=== PATIENT | female | born 1945 | race Caucasian/White ===

== ENCOUNTER 2016-05-19 18:31 | Emergency (ER) | payer MEDICARE, BC, OTHER ==
--- NOTE | 2016-05-19 18:50 | ER Document Report ---
ED Medical Screen (RME) - General Stated Complaint: ABNORMAL LABS Notes: 70 yo female with hx/o of DVT right leg x 3 months, sent by Dr Greenwood for abnormal lab. . Pt presently on Coumadin. + shortness of breath x 1 month. no new symptoms. labs drawn today, D Dimer elevated 2.4 TRAVEL OUTSIDE OF THE [place] IN LAST 30 DAYS: No - Related Data Allergies/Adverse Reactions: Sulfa (Sulfonamide Antibiotics) Allergy (Intermediate, Verified 01/01/16 13:21) Hives milk [Milk] Adverse Reaction (Intermediate, Verified 01/01/16 13:21) IBS Past Medical History - Past Medical History Cardiac Medical History: Reports: Hx Coronary Artery Disease, Hx DVT, Hx Hypercholesterolemia, Hx Hypertension - medicated Denies: Hx Heart Attack Pulmonary Medical History: Denies: Hx Asthma, Hx Bronchitis, Hx COPD, Hx Pneumonia Neurological Medical History: Reports: Hx Migraine. Denies: Hx Cerebrovascular Accident, Hx Seizures Malignancy Medical History: Reports: Hx Breast Cancer - BILATERAL BREAST CANCER GI Medical History: Reports: Hx Gastroesophageal Reflux Disease. Denies: Hx Hepatitis, Hx Hiatal Hernia, Hx Ulcer Musculoskeltal Medical History: Reports Hx Arthritis Psychiatric Medical History: Reports: Hx Depression Infectious Medical History: Denies: Hx Hepatitis Past Surgical History: Reports: Hx Breast Surgery, Hx Cholecystectomy - CHOLECYSTECTOMY FEW YRS AGO, Hx Hysterectomy, Hx Mastectomy - restricted on left , Hx Orthopedic Surgery - left hipx2. Denies: Hx Open Heart Surgery, Hx Pacemaker - Immunizations Immunizations up to date: No Hx Diphtheria, Pertussis, Tetanus Vaccination: Yes
--- NOTE | 2016-05-19 22:15 | ER Document Report ---
ED General - General Chief Complaint: Abnormal Lab Results Stated Complaint: ABNORMAL LABS Notes: Patient is a 70-year-old female who presents with complaint of having a positive d-dimer. Patient said that she's had some shortness of breath with exertion for 3-4 months. She's followed by ballast regulator operator, Dr. Kang. He's done Holter monitors as well as stress test. These all been negative. She has no history of cardiac stenting. She has no associated chest pain. She does have a blood clot in her right leg. She is on Coumadin for this. He did perform a d -dimer today which was positive and therefore sent her to the ER. She says her INR levels have been appropriate. She has no other complaints at this time. TRAVEL OUTSIDE OF THE [place] IN LAST 30 DAYS: No - Related Data Allergies/Adverse Reactions: Sulfa (Sulfonamide Antibiotics) Allergy (Intermediate, Verified 01/01/16 13:21) Hives milk [Milk] Adverse Reaction (Intermediate, Verified 01/01/16 13:21) IBS Past Medical History - Social History Smoking Status: Never Smoker Frequency of alcohol use: None Drug Abuse: None Family History: Reviewed & Not Pertinent Patient has suicidal ideation: No Patient has homicidal ideation: No - Past Medical History Cardiac Medical History: Reports: Hx Coronary Artery Disease, Hx DVT, Hx Hypercholesterolemia, Hx Hypertension - medicated Denies: Hx Heart Attack Pulmonary Medical History: Denies: Hx Asthma, Hx Bronchitis, Hx COPD, Hx Pneumonia Neurological Medical History: Reports: Hx Migraine. Denies: Hx Cerebrovascular Accident, Hx Seizures Renal/ Medical History: Denies: Hx Peritoneal Dialysis Malignancy Medical History: Reports: Hx Breast Cancer - BILATERAL BREAST CANCER GI Medical History: Reports: Hx Gastroesophageal Reflux Disease. Denies: Hx Hepatitis, Hx Hiatal Hernia, Hx Ulcer Musculoskeltal Medical History: Reports Hx Arthritis Psychiatric Medical History: Reports: Hx Depression Infectious Medical History: Denies: Hx Hepatitis Past Surgical History: Reports: Hx Breast Surgery, Hx Cholecystectomy - CHOLECYSTECTOMY FEW YRS AGO, Hx Hysterectomy, Hx Mastectomy - restricted on left , Hx Orthopedic Surgery - left hipx2. Denies: Hx Open Heart Surgery, Hx Pacemaker - Immunizations Immunizations up to date: No Hx Diphtheria, Pertussis, Tetanus Vaccination: Yes Hx Pneumococcal Vaccination: 11/28/14 Review of Systems - Review of Systems Notes: My Normal Review Basic REVIEW OF SYSTEMS: CONSTITUTIONAL : Denies fever, chills, or sweats. Denies recent illness. EENT: Denies eye, ear, throat, or mouth pain or symptoms. Denies nasal or sinus congestion. CARDIOVASCULAR: Denies chest pain. RESPIRATORY: Some dyspnea. GASTROINTESTINAL: Denies abdominal pain. Denies nausea, vomiting, or diarrhea. Denies constipation. Last BM: MUSCULOSKELETAL: Denies neck or back pain or joint pain or swelling. SKIN: Denies rash or skin lesions. HEMATOLOGIC : Denies easy bruising or bleeding. NEUROLOGICAL: Denies altered mental status or loss of consciousness. Denies headache. Denies weakness or paralysis or loss of use of either side. Denies problems with gait or speech. Denies sensory or motor loss. ALL OTHER SYSTEMS REVIEWED AND NEGATIVE. Physical Exam - Vital signs Vitals: Temp Pulse Resp BP Pulse Ox 98.5 F 103 H 20 146/85 H 94 05/19/16 18:51 05/19/16 18:51 05/19/16 18:51 05/19/16 18:51 05/19/16 18:51 - Notes Notes: General Appearance: Well nourished, alert, cooperative, no acute distress, no obvious discomfort. Well-appearing. Vitals: reviewed, See vital signs table. Head: no swelling or tenderness to the head Eyes: PERRL, EOMI, Conjuctiva clear Mouth: No decreasd moisture Neck: Supple, no neck tenderness, No thyromegaly Lungs: No wheezing, No rales, No rhonci, No accessory muscle use, good air exchange bilaterally. Heart: Normal rate, Regular rythm, No murmur, no rub Abdomen: Normal BS, soft, No rigidity, No abdominal tenderness, No guarding, no rebound, no abdominal masses, no organomegaly Extremities: strength 5/5 in all extremities, good pulses in all extremities, no swelling or tenderness in the extremities, no edema. Skin: warm, dry, appropriate color, no rash Neuro: speech clear, oriented x 3, normal affect, responds appropriately to questions. Course - Vital Signs Vital signs: Temp Pulse Resp BP Pulse Ox 98.5 F 103 H 20 146/85 H 94 05/19/16 18:51 05/19/16 18:51 05/19/16 18:51 05/19/16 18:51 05/19/16 18:51 - Laboratory Result Diagrams: 03/22/17 22:40 05/19/16 23:38 Laboratory results interpreted by me: 05/19/16 05/19/16 05/19/16 22:40 22:40 23:38 Hgb 11.7 L Hct 34.6 L RDW 15.3 H PT 34.7 H Carbon Dioxide 31 H - EKG Interpretation by Me Additional EKG results interpreted by me: 05/19/16 22:33 EKG is reviewed and interpreted by me. EKG shows normal sinus rhythm with rate of 79 bpm. Patient has some cognitive up ST segment elevation leads 2. No reciprocal ST segment depressions. Consistent with early repolarization abnormality and is consistent with her previous old EKG from 01/28/2016. FL interval, QRS duration, QTC levels are within normal range. - Transfer of Care Notes: 05/20/16 01:[address] scan was negative for any blood clots in her lungs. Her lung regalado are clear. She looks well. I feel she is safe to be discharged home. I do not think she needs any further cardiac workup that she has no chest pain in his had a recent negative cardiac stress test. Her exertional dyspnea is being worked up by her ballast regulator operator, Dr. Knag and her symptoms have been ongoing for 2- 3 months. Patient's INR slightly supratherapeutic. At this time I do not think it's appropriate to adjust her dosage as her levels most likely fluctuate as expected with Coumadin. Dictation of this chart was performed using voice recognition software; therefore, there may be some unintended grammatical errors. Discharge - Discharge Clinical Impression: Elevated d-dimer Dyspnea Qualifiers: Dyspnea type: unspecified Qualified Code(s): R06.00 - Dyspnea, unspecified Condition: Good Disposition: HOME, SELF-CARE Additional Instructions: Please return to the ER if you have worsening difficulty breathing, chest pain, fevers, or feel unwell. Please call Dr. Kang's office tomorrow to make a close follow-up appointment. Your CT scan today was negative for any blood clots in your chest. Referrals: BRIGITTE GUTIERREZ MD [Primary Care Provider] - Follow up as needed EDYTA KANG MD [EMERITUS] - Follow up tomorrow
[2016-05-19 22:58] LABS: ABSOLUTE BASOPHILS # (AUTO) 0.1 10^3/uL (0.0-0.2); ABSOLUTE EOSINOPHILS # (AUTO) 0.2 10^3/uL (0.0-0.6); ABSOLUTE LYMPHOCYTES (AUTO) 1.9 10^3/uL (0.5-4.7); ABSOLUTE MONOCYTES (AUTO) 0.6 10^3/uL (0.1-1.4); ABSOLUTE NEUT (AUTO) 5.2 10^3/uL (1.7-8.2); EOSINOPHILS % (AUTO) 2.2 % (0-6); HEMATOCRIT 34.6 % (36.0-47.0); HEMOGLOBIN 11.7 g/dL (12.0-15.5); HGB HCT DIFFERENCE 0.5; LYMPHOCYTES % (AUTO) 23.6 % (13-45); MEAN CORPUSCULAR HEMOGLOBIN 30.8 pg (27.0-33.4); MEAN CORPUSCULAR HGB CONC 33.7 g/dL (32.0-36.0); MEAN CORPUSCULAR VOLUME 91 fl (80-97); MONOCYTES % (AUTO) 7.2 % (3-13); RED BLOOD COUNT 3.79 10^6/uL (3.72-5.28); RED CELL DISTRIBUTION WIDTH 15.3 % (11.5-14.0); WHITE BLOOD COUNT 7.9 10^3/uL (4.0-10.5)
[2016-05-19 23:04] LABS: PROTHROMBIN TIME 34.7 SEC (11.4-15.4)
[2016-05-20 00:06] LABS: ANION GAP 9 (5-19); BLOOD UREA NITROGEN 10 mg/dL (7-20); CARBON DIOXIDE 31 mmol/L (22-30); CHLORIDE 99 mmol/L (98-107); CREATININE RESULT 0.73 mg/dL (0.52-1.25); GLUCOSE 103 mg/dL (75-110); POTASSIUM 3.9 mmol/L (3.6-5.0); SODIUM 138.6 mmol/L (137-145)
[2016-05-20] MEDS ORDERED: NORMAL SALINE 1000 ML 500 ML IV ONE (00:11)
[2016-05-20 01:50] VITALS: BP 124/69
--- NOTE | 2016-05-20 08:12 | EKG REPORT ---
SEVERITY:- NORMAL ECG - SINUS RHYTHM : Confirmed by: Yao Greenwood MD 20-May-2016 08:11:16
== END 2016-05-20 01:50 | disposition home or self-care (01) ==
LOC: ER 18:31
DX: R79.89 Other specified abnormal findings of blood chemistry (principal); R06.00 Dyspnea, unspecified; I25.10 Atherosclerotic heart disease of native coronary artery without angina pectoris; E78.00 Pure hypercholesterolemia, unspecified; I10 Essential (primary) hypertension; K21.9 Gastro-esophageal reflux disease without esophagitis; Z86.718 Personal history of other venous thrombosis and embolism; Z79.01 Long term (current) use of anticoagulants; Z88.2 Allergy status to sulfonamides; Z91.011 Allergy to milk products; Z85.3 Personal history of malignant neoplasm of breast; Z90.49 Acquired absence of other specified parts of digestive tract; Z90.710 Acquired absence of both cervix and uterus
CPT/HCPCS: 36415; 71275; 80048; 80061; 80076; 82550; 83880; 85025; 85379; 85610; 93005; 93010; 99284

== ENCOUNTER → 2016-05-19 | Outpatient (CLI) | payer MEDICARE, BC, OTHER ==
[2016-05-19 10:16] LABS: ALANINE AMINOTRANSFERASE 28 U/L (9-52); ALBUMIN 4.4 g/dL (3.5-5.0); ALKALINE PHOSPHATASE 91 U/L (38-126); ASPARTATE AMINO TRANSFERASE 27 U/L (14-36); BILIRUBIN,DIRECT 0.3 mg/dL (0.0-0.4); BILIRUBIN,TOTAL 0.4 mg/dL (0.2-1.3); CHOLESTEROL 312.77 mg/dL (0-200); CREATINE KINASE 79 U/L (30-135); Direct HDL 69 mg/dL (>40); TOTAL PROTEIN 7.8 g/dL (6.3-8.2); TRIGLYCERIDES 191 mg/dL (<150)
[2016-05-19 10:20] LABS: ANION GAP 14 (5-19); BLOOD UREA NITROGEN 9 mg/dL (7-20); CALCIUM 10.1 mg/dL (8.4-10.2); CARBON DIOXIDE 27 mmol/L (22-30); CHLORIDE 100 mmol/L (98-107); CREATININE RESULT 0.82 mg/dL (0.52-1.25); GLUCOSE 106 mg/dL (75-110); POTASSIUM 4.7 mmol/L (3.6-5.0); SODIUM 141.4 mmol/L (137-145)
[2016-05-19 10:27] LABS: DIRECT LDL 216 mg/dL (<100)
[2016-05-19 10:31] LABS: VLDL CHOLESTEROL 38.2 mg/dL (10-31)
== END ==
LOC: OD 08:41
PROVIDERS: ATTEND Internal Medicine Cardiovascular Disease
DX: R06.02 Shortness of breath (principal); E78.00 Pure hypercholesterolemia, unspecified; M62.82 Rhabdomyolysis; Z79.899 Other long term (current) drug therapy
CPT/HCPCS: 36415; 80048; 80061; 80076; 82550; 83880; 85379

== ENCOUNTER 2016-07-08 07:18 | Day surgery (SDC) | payer MEDICARE, BC, OTHER ==
--- NOTE | 2016-07-01 10:40 | HISTORY AND PHYSICAL E ---
History and Physical NAME: RUKHSANA GANDHI : 1945 AGE: 70Y ADMITTED: 07/08/2016 ROOM: ADMIT DATE: 07/08/2016 HISTORY OF PRESENT ILLNESS: Upper GI done back in 1999 showed 2 cm diverticulum in the duodenum. She did have colonoscopy in the past, Dr. Kennedy. ALLERGIES: Patient allergic to SULFA. PAST MEDICAL HISTORY: Colonoscopy 2000 showing polyps in the rectosigmoid colon, benign hyperplastic polyps. Another colonoscopy 2010 showing no adenoma. Another colonoscopy 2012 showing polyps. Colonoscopy 05/2015 shows hyperplastic polyps. PRIMARY CARE: Denys Alcantara MD PHYSICAL EXAMINATION: GENERAL: Pleasant, alert, oriented in no acute distress. VITAL SIGNS: Temperature is 98. Pulse 80. Respirations 20. Blood pressure 140/70. HEAD, EYES, EARS, NOSE AND THROAT: Normal. ABDOMEN: Soft. NEUROLOGIC EXAM: Negative. CONCLUSIONS: 1. Diverticulosis. 2. Colorectal polyps. 3. History of breast cancer. PLAN: Colonoscopy arranged for 07/08/2016. DICTATING PHYSICIAN: LACHELLE VELASCO M.D. [id number] PHY#: [id number] ID: [id number] JOB#: [id number] ACCT: [id number] cc:HOMERO MÉNDEZ M.D., ALEXANDER M.D. ISSA, MAHMOUD M.D. >
[~2016-07-08 07:18] MED LIST: EPINEPHRINE INJ 1 MG/10 ML DISP.SYRIN ONE; FENTANYL CITRATE INJ/PF 100 MCG/2 ML AMPUL ONE; FLUMAZENIL INJ 0.5 MG/5 ML VIAL IV ONE; GLUCAGON,HUMAN RECOMB 1 MG INJ ONE; GLYCOPYRROLATE INJ 0.4 MG/2 ML VIAL ONE; LIDOCAINE 2% JELLY 30 ML TUBE ONE; MIDAZOLAM 2 MG/2 ML INJ ONE; NALOXONE HCL INJ/PF 0.4 MG/1 ML SDV ONE; ONDANSETRON HCL INJ/PF 4 MG/2 ML SDV ONE
[2016-07-08] MEDS ORDERED: GLUCAGON,HUMAN RECOMB 1 MG INJ ONE (08:31)
[2016-07-08] MEDS ORDERED: PROPOFOL INJ 200 MG/20 ML VIAL IV ONE (08:32)
[2016-07-08] MEDS ORDERED: FENTANYL CITRATE INJ/PF 100 MCG/2 ML AMPUL IV PRN ×2 (08:43)
[2016-07-08] MEDS ORDERED: ONDANSETRON HCL INJ/PF 4 MG/2 ML SDV IV PRN (08:43)
[2016-07-08 10:23] LABS: ABSOLUTE EOSINOPHILS # (AUTO) 0.2 10^3/uL (0.0-0.6); ABSOLUTE LYMPHOCYTES (AUTO) 1.9 10^3/uL (0.5-4.7); ABSOLUTE MONOCYTES (AUTO) 0.4 10^3/uL (0.1-1.4); ABSOLUTE NEUT (AUTO) 4.2 10^3/uL (1.7-8.2); BASOPHILS % (AUTO) 0.5 % (0-2); EOSINOPHILS % (AUTO) 2.3 % (0-6); HEMOGLOBIN 12.8 g/dL (12.0-15.5); HGB HCT DIFFERENCE 0.4; LYMPHOCYTES % (AUTO) 28.6 % (13-45); MEAN CORPUSCULAR HEMOGLOBIN 31.7 pg (27.0-33.4); MEAN CORPUSCULAR HGB CONC 33.8 g/dL (32.0-36.0); MEAN CORPUSCULAR VOLUME 94 fl (80-97); MONOCYTES % (AUTO) 6.5 % (3-13); RED BLOOD COUNT 4.05 10^6/uL (3.72-5.28); RED CELL DISTRIBUTION WIDTH 15.8 % (11.5-14.0); SEGMENTED NEUTROPHILS % (AUTO) 62.1 % (42-78); WHITE BLOOD COUNT 6.8 10^3/uL (4.0-10.5)
[2016-07-08 10:40] VITALS: BP 97/56
--- NOTE | 2016-07-08 14:40 | DISCHARGE SUMMARY E ---
Discharge Summary NAME: RUKHSANA GANDHI : 1945 AGE: 70Y ADMITTED: 07/08/2016 DISCHARGED: 07/08/2016 PROCEDURE: Colonoscopy. FINAL DIAGNOSIS: Sigmoid and descending colon diverticulosis. HISTORY: The patient is 70 and had a previous colonoscopy with hyperplastic polyps. Today's colonoscopy was successful to the cecum, done in the OR with anesthesia standby. There was no bleeding and no malignancy. There was diverticulosis in sigmoid and descending colon. DISCHARGE PLAN: Baseline CBC, CEA, chem profile and follow-up office visit in the next few days. Consideration of follow-up colonoscopy in 1 year with better prep with anesthesia standby. DICTATING PHYSICIAN: LACHELLE VELASCO M.D. [id number] PHY#: [id number] ID: [id number] JOB#: [id number] ACCT: [id number] cc:HOMERO MÉNDEZ M.D., ALEXANDER M.D. ISSA, MAHMOUD M.D. >
--- NOTE | 2016-07-08 14:42 | OPERATIVE REPORT E ---
Operative Report NAME: RUKHSANA GANDHI : 1945 AGE: 70Y DATE OF SURGERY: 07/08/2016 ROOM: PREOPERATIVE DIAGNOSIS: Colon screening. POSTOPERATIVE DIAGNOSIS: Sigmoid descending colon diverticulosis. PROCEDURE: Colonoscopy. SURGEON: LACHELLE VELASCO M.D. ANESTHESIA: Done in the OR with Anesthesia standby. TISSUE REMOVED OR ALTERED: None. DESCRIPTION OF PROCEDURE: Rectal exam: Normal. Sigmoid descending colon: Diverticulosis. Transverse colon: Large amount of liquid stool, otherwise normal. Ascending colon: Some food material and debris of leftover food, otherwise normal. Cecum: Normal. There was a large amount of food retained in the cecum. Prep was inadequate. There was a large amount of formed stool and full liquid material. I did the best I could. I just could not see any polyps or malignancy. Scope withdrawn through cecum, ascending, transverse, descending, sigmoid, all the way to the rectum. CONCLUSION: 1. Inadequate prep. 2. Large amount of retained foot material in the right colon. 3. Full liquid stool in the transverse colon. 4. Essentially negative colonoscopy for malignancy, negative for polyps. 5. Large diverticulosis. PLAN: Consider followup colonoscopy after a year with better prep to be done in the OR. DICTATING PHYSICIAN: LACHELLE VELASCO M.D. [id number] PHY#: [id number] ID: [id number] JOB#: [id number] ACCT: [id number] cc:HOMERO MÉNDEZ M.D., ALEXANDER M.D. ISSA, MAHMOUD M.D. >
== END 2016-07-08 10:40 | disposition home or self-care (01) ==
LOC: END 07:18
PROVIDERS: ATTEND Specialist
PROC: 0DJD8ZZ Inspection of Lower Intestinal Tract, Via Natural or Artificial Opening Endoscopic (ICD-10-PCS; principal; 2016-07-08 08:00)
DX: Z12.11 Encounter for screening for malignant neoplasm of colon (principal); K57.30 Diverticulosis of large intestine without perforation or abscess without bleeding; I10 Essential (primary) hypertension; I25.10 Atherosclerotic heart disease of native coronary artery without angina pectoris; M19.90 Unspecified osteoarthritis, unspecified site; K63.5 Polyp of colon; R97.0 Elevated carcinoembryonic antigen [CEA]; Z88.2 Allergy status to sulfonamides; Z85.3 Personal history of malignant neoplasm of breast
CPT/HCPCS: 36415; 82378; 85025; G0121; J0171; J2704; 45378; 810; J1610; J2250; J2310; J2405; J3010; J3490

== ENCOUNTER → 2016-09-16 | Outpatient (CLI) | payer MEDICARE, BC, OTHER ==
[2016-09-16 13:49] LABS: ALANINE AMINOTRANSFERASE 30 U/L (9-52); ALBUMIN 4.6 g/dL (3.5-5.0); ALKALINE PHOSPHATASE 95 U/L (38-126); ANION GAP 13 (5-19); ASPARTATE AMINO TRANSFERASE 32 U/L (14-36); BILIRUBIN,DIRECT 0.4 mg/dL (0.0-0.4); BILIRUBIN,TOTAL 0.7 mg/dL (0.2-1.3); BLOOD UREA NITROGEN 12 mg/dL (7-20); CALCIUM 9.7 mg/dL (8.4-10.2); CARBON DIOXIDE 24 mmol/L (22-30); CHLORIDE 97 mmol/L (98-107); CREATINE KINASE 90 U/L (30-135); CREATININE RESULT 0.89 mg/dL (0.52-1.25); GLUCOSE 113 mg/dL (75-110); SODIUM 133.5 mmol/L (137-145)
[2016-09-17 08:58] LABS: CHOLESTEROL 280.38 mg/dL (0-200); Direct HDL 64 mg/dL (>40); TRIGLYCERIDES 130 mg/dL (<150)
[2016-09-17 09:08] LABS: DIRECT LDL 201 mg/dL (<100)
== END ==
LOC: OD 12:43
PROVIDERS: ATTEND Internal Medicine Cardiovascular Disease
DX: E78.00 Pure hypercholesterolemia, unspecified (principal); R06.02 Shortness of breath; M62.82 Rhabdomyolysis; Z79.899 Other long term (current) drug therapy
CPT/HCPCS: 36415; 80048; 80061; 80076; 82550; 83880; 85379

== ENCOUNTER → 2016-12-31 | Outpatient (CLI) | payer MEDICARE, BC, OTHER ==
[2017-01-07 16:35] LABS: ANION GAP 15 (5-19); BLOOD UREA NITROGEN 14 mg/dL (7-20); CALCIUM 9.3 mg/dL (8.4-10.2); CARBON DIOXIDE 24 mmol/L (22-30); CHLORIDE 103 mmol/L (98-107); CREATININE RESULT 0.93 mg/dL (0.52-1.25); GLUCOSE 87 mg/dL (75-110); POTASSIUM 4.3 mmol/L (3.6-5.0); SODIUM 141.5 mmol/L (137-145)
== END ==
LOC: OD 10:06
PROVIDERS: ATTEND Internal Medicine Cardiovascular Disease
DX: I48.0 Paroxysmal atrial fibrillation (principal); I10 Essential (primary) hypertension; Z79.899 Other long term (current) drug therapy
CPT/HCPCS: 36415; 80048

== ENCOUNTER → 2017-05-17 | Outpatient (CLI) | payer MEDICARE, BC, OTHER ==
--- NOTE | 2017-05-17 16:11 | WOMENS IMAGING REPORT ---
EXAM DESCRIPTION: BILAT SCREENING MAMMO W/CAD COMPLETED DATE/TIME: 05/17/2017 1:21 pm REASON FOR STUDY: ROUTINE SCREENING;Z12.31 Z12.31 ENCNTR SCREEN MAMMOGRAM FOR MALIGNANT NEOPLASM OF LUCILA COMPARISON: Previous films are preoperative, 5 years ago at a different institution TECHNIQUE: Standard craniocaudal and mediolateral oblique views of each breast recorded using digita l acquisition. Additional "push-back" craniocaudal and mediolateral oblique images acquired. LIMITATIONS: None. FINDINGS: IMPLANTS: Bilateral subpectoral implants. Findings present which are benign by mammographic criteria. No suspicious masses, calcifications or architectural distortion. Patient is post bilateral skin sparing mastectomies. No [place] breast tis daniel is identified on today's mammograms. Read with the assistance of CAD. .[facility] - R2 Cenova Version 1.3 .[facility] - R2 Cenova Version 1.3 .[facility] - R2 Cenova Version 2.4 .[facility] [place] - R2 Cenova Version 2.4 .[facility] - R2 Intermediate Project Manager Version 9.2 Benign mammographic findings may include one or more of the following: Smooth masses, popcorn/rim/co arse calcifications, asymmetries, post-procedure changes, and lesions with long-standing stability. IMPRESSION: BENIGN MAMMOGRAPHIC FINDINGS. BIRADS 2 BREAST DENSITY: a. The breasts are almost entirely fatty. BIRAD: 2 BENIGN FINDING(S) RECOMMENDATION: Screening as clinically indicated COMMENT: The patient has been notified of the results by letter per [place] requirements. Additional no tification policies are in place for contacting patient with suspicious or incomplete findings. Quality ID #[id number]: The [employer] recommends an annual screening mammogram for women aged 40 years or over. This facility utilizes a reminder system to ensure that all patients receive reminder letters, and/or direct phone calls for appointments. This includes reminders for routine scr eening mammograms, diagnostic mammograms, or other Breast Imaging Interventions when appropriate. Th is patient will be placed in the appropriate reminder system. The [employer] (ACR) has developed recommendations for screening MRI of the breast s in certain patient populations, to be used in conjunction with mammography. Breast MRI surveillanc e may be appropriate for women with more than 20% lifetime risk of developing breast cancer as deter mined by genetic testing, significant family history of the disease, or history of mantle radiation f or Hodgkins Disease. ACR Practice Guidelines 2008. TECHNICAL DOCUMENTATION: FINDING NUMBER: (1) ASSESSMENT: (1) JOB ID: [id number] [employer]- All Rights Reserved Reading location - IP/workstation name: [email or web address]
== END ==
LOC: WI 12:58
PROVIDERS: ATTEND Physician Assistant Medical
DX: Z12.31 Encounter for screening mammogram for malignant neoplasm of breast (principal); Z98.82 Breast implant status
CPT/HCPCS: 77067

== ENCOUNTER 2017-11-13 13:48 | Inpatient (IN) | payer MEDICARE, BC, OTHER ==
[2017-11-13] MEDS ORDERED: NORMAL SALINE 1000 ML 1,000 ML IV ONE ×2 (14:21→14:22)
--- NOTE | 2017-11-13 14:23 | ER Document Report ---
ED Medical Screen (RME) - General Chief Complaint: Probable Seizure Stated Complaint: POSSIBLE SEIZURE Time Seen by Provider: 11/13/17 14:08 Mode of Arrival: Wheelchair Information source: Patient, Relative Notes: Patient's says he witnessed patient collapsed twice today at home. Prior to collapsing she was standing and then she started shaking before she collapsed on the floor. Patient has history of seizures according to the but she has not taken any seizure medicine currently. Patient is a poor historian and could not give me any history by herself. I have greeted and performed a rapid initial assessment of this patient. A comprehensive ED assessment and evaluation of the patient, analysis of test results and completion of the medical decision making process will be conducted by additional ED providers. TRAVEL OUTSIDE OF THE [place] IN LAST 30 DAYS: No - Related Data Allergies/Adverse Reactions: Sulfa (Sulfonamide Antibiotics) Allergy (Intermediate, Verified 07/08/16 07:21) Hives milk [Milk] Adverse Reaction (Intermediate, Verified 07/08/16 07:21) IBS Past Medical History - Past Medical History Cardiac Medical History: Reports: Hx Coronary Artery Disease, Hx DVT, Hx Hypercholesterolemia, Hx Hypertension - medicated Denies: Hx Heart Attack Pulmonary Medical History: Denies: Hx Asthma, Hx Bronchitis, Hx COPD, Hx Pneumonia Neurological Medical History: Reports: Hx Migraine. Denies: Hx Cerebrovascular Accident, Hx Seizures Renal/ Medical History: Denies: Hx Peritoneal Dialysis Malignancy Medical History: Reports: Hx Breast Cancer - BILATERAL BREAST CANCER GI Medical History: Reports: Hx Gastroesophageal Reflux Disease. Denies: Hx Hepatitis, Hx Hiatal Hernia, Hx Ulcer Musculoskeltal Medical History: Reports Hx Arthritis Psychiatric Medical History: Reports: Hx Depression Infectious Medical History: Denies: Hx Hepatitis Past Surgical History: Reports: Hx Breast Surgery, Hx Cholecystectomy - CHOLECYSTECTOMY FEW YRS AGO, Hx Hysterectomy, Hx Mastectomy - restricted on left , Hx Orthopedic Surgery - left hipx2. Denies: Hx Open Heart Surgery, Hx Pacemaker - Immunizations Immunizations up to date: No Hx Diphtheria, Pertussis, Tetanus Vaccination: Yes Physical Exam - Vital signs Vitals: Temp Pulse Resp BP Pulse Ox 97.5 F 71 16 71/47 L 97 11/13/17 13:57 11/13/17 13:57 11/13/17 13:57 11/13/17 13:57 09/16/18 13:57 Course - Vital Signs Vital signs: Temp Pulse Resp BP Pulse Ox 97.5 F 71 16 71/47 L 97 11/13/17 13:57 11/13/17 13:57 11/13/17 13:57 11/13/17 13:57 11/13/17 13:57 Doctor's Discharge - Discharge Referrals: JUANITO PAT PA-C [Primary Care Provider] - Follow up as needed
[2017-11-13 15:15] LABS: ABSOLUTE EOSINOPHILS # (AUTO) 0.2 10^3/uL (0.0-0.6); ABSOLUTE LYMPHOCYTES (AUTO) 0.7 10^3/uL (0.5-4.7); ABSOLUTE MONOCYTES (AUTO) 0.3 10^3/uL (0.1-1.4); ABSOLUTE NEUT (AUTO) 11.2 10^3/uL (1.7-8.2); BASOPHILS % (AUTO) 0.2 % (0-2); EOSINOPHILS % (AUTO) 1.2 % (0-6); HEMATOCRIT 37.8 % (36.0-47.0); HEMOGLOBIN 12.5 g/dL (12.0-15.5); MEAN CORPUSCULAR HEMOGLOBIN 31.4 pg (27.0-33.4); MEAN CORPUSCULAR HGB CONC 33.2 g/dL (32.0-36.0); MEAN CORPUSCULAR VOLUME 95 fl (80-97); MONOCYTES % (AUTO) 2.2 % (3-13); PLATELET COUNT 285 10^3/uL (150-450); RED BLOOD COUNT 3.99 10^6/uL (3.72-5.28); RED CELL DISTRIBUTION WIDTH 14.5 % (11.5-14.0); SEGMENTED NEUTROPHILS % (AUTO) 90.4 % (42-78); TOTAL CELLS COUNTED % (AUTO) 100 %; WHITE BLOOD COUNT 12.4 10^3/uL (4.0-10.5)
--- NOTE | 2017-11-13 15:22 | RADIOLOGY REPORT (SQ) ---
EXAM DESCRIPTION: CT HEAD WITHOUT COMPLETED DATE/TIME: 11/13/2017 3:11 pm REASON FOR STUDY: AMS COMPARISON: 01/03/2016, 08/10/2013, 12/13/2008 CT brain TECHNIQUE: Axial images acquired through the brain without intravenous contrast. Images reviewed wi th bone, brain and subdural windows. Additional sagittal and coronal reconstructions were generated. Images stored on PACS. All CT scanners at this facility use dose modulation, iterative reconstruction, and/or weight based d osing when appropriate to reduce radiation dose to as low as reasonably achievable (ALARA). [facility]: Dose Right [facility]: CareDose [facility]: Dose Right [facility]: Teradose 4D [facility]: Hello Chair RADIATION DOSE: CT Rad equipment meets quality standard of care and radiation dose reduction techniq ues were employed. CTDIvol: 53.2 mGy. DLP: 937 mGy-cm. mGy. LIMITATIONS: None. FINDINGS: VENTRICLES: Normal size and contour. CEREBRUM: No CT evidence of acute large territory ischemic change, acute intracranial hemorrhage, mas s effect, or midline shift. Low attenuation in the bilateral medial basal ganglia images 16 and 17 f rom old punctate lacunar infarcts. CEREBELLUM: No masses. No hemorrhage. No alteration of density. No evidence for acute infarction. EXTRAAXIAL SPACES: No fluid collections. No masses. ORBITS AND GLOBE: No intra- or extraconal masses. Normal contour of globe without masses. CALVARIUM: No fracture. PARANASAL SINUSES: No fluid or mucosal thickening. SOFT TISSUES: No mass or hematoma. OTHER: No other significant finding. IMPRESSION: No acute findings EVIDENCE OF ACUTE STROKE: NO. COMMENT: Quality ID # [id number]: Final reports with documentation of one or more dose reduction techniques (e.g., Automated exposure control, adjustment of the mA and/or kV according to patient size, use of iterative reconstruction technique) TECHNICAL DOCUMENTATION: JOB ID: [id number] [employer]- All Rights Reserved Reading location - IP/workstation name: [email or web address]
--- NOTE | 2017-11-13 15:28 | RADIOLOGY REPORT (SQ) ---
EXAM DESCRIPTION: CHEST 2 VIEWS COMPLETED DATE/TIME: 11/13/2017 3:17 pm REASON FOR STUDY: AMS COMPARISON: 01/03/2016 EXAM PARAMETERS: NUMBER OF VIEWS: two views TECHNIQUE: Digital Frontal and Lateral radiographic views of the chest acquired. RADIATION DOSE: NA LIMITATIONS: none FINDINGS: LUNGS AND PLEURA: No opacities, masses or pneumothorax. No pleural effusion. MEDIASTINUM AND HILAR STRUCTURES: No masses or contour abnormalities. HEART AND VASCULAR STRUCTURES: Heart normal size. No evidence for failure. BONES: No acute findings. HARDWARE: None in the chest. OTHER: No other significant finding. IMPRESSION: NO ACUTE RADIOGRAPHIC FINDING IN THE CHEST. TECHNICAL DOCUMENTATION: JOB ID: [id number] [employer]- All Rights Reserved Reading location - IP/workstation name: [email or web address]
[2017-11-13 15:49] LABS: ALANINE AMINOTRANSFERASE 12 U/L (9-52); ALBUMIN 4.1 g/dL (3.5-5.0); ALKALINE PHOSPHATASE 69 U/L (38-126); ANION GAP 12 (5-19); ASPARTATE AMINO TRANSFERASE 25 U/L (14-36); BILIRUBIN,DIRECT 0.5 mg/dL (0.0-0.4); BILIRUBIN,TOTAL 0.6 mg/dL (0.2-1.3); BLOOD UREA NITROGEN 19 mg/dL (7-20); CALCIUM 9.8 mg/dL (8.4-10.2); CARBON DIOXIDE 21 mmol/L (22-30); CHLORIDE 106 mmol/L (98-107); CREATINE KINASE 65 U/L (30-135); GLUCOSE 111 mg/dL (75-110); POTASSIUM 3.7 mmol/L (3.6-5.0); SODIUM 138.5 mmol/L (137-145); TOTAL PROTEIN 7.7 g/dL (6.3-8.2)
[2017-11-13 15:50] LABS: ALCOHOL < 10 mg/dL (NONE DETECTED)
[2017-11-13 15:55] LABS: CREATINE KINASE MB 0.82 ng/mL (<4.55); NT PRO BNP 121 pg/mL (5-900)
[2017-11-13 15:56] LABS: TROPONIN I < 0.012 ng/mL
[2017-11-13 17:21] LABS: APPEARANCE,URINE CLOUDY; BILIRUBIN,URINE NEGATIVE (NEGATIVE); COLOR,URINE STRAW; GLUCOSE, URINE NEGATIVE (NEGATIVE); KETONES,URINE NEGATIVE (NEGATIVE); LEUKOCYTE ESTERASE,URINE LARGE (NEGATIVE); NITRITE,URINE NEGATIVE (NEGATIVE); PROTEIN,URINE 30 mg/dL (NEGATIVE); URINE SPECIFIC GRAVITY 1.007; UROBILINOGEN,URINE NEGATIVE mg/dL (<2.0)
[2017-11-13 17:34] LABS: URINE AMPHETAMINES SCREEN NEGATIVE; URINE BARBITURATES SCREEN NEGATIVE; URINE BENZODIAZEPINES SCREEN NEGATIVE; URINE COCAINE SCREEN NEGATIVE; URINE MARIJUANA (THC) SCREEN NEGATIVE; URINE METHADONE SCREEN NEGATIVE; URINE PHENCYCLIDINE SCREEN NEGATIVE
[2017-11-13] MEDS ORDERED: CEFTRIAXONE 1 GM/D5W RTU 1 GM/50 ML RTUPB IV ONE (18:03)
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
--- NOTE | 2017-11-13 18:43 | RADIOLOGY REPORT (SQ) ---
EXAM DESCRIPTION: CT LTD RENAL STONE PROTOCOL ON COMPLETED DATE/TIME: 11/13/2017 6:24 pm REASON FOR STUDY: eval for stone, Abd pain, flank pain . Bilateral lower quadrants pain. COMPARISON: CT abdomen and pelvis 04/12/2014, 08/18/2013. Lumbar spine x-ray 01/02/2016. TECHNIQUE: CT scan of the abdomen and pelvis performed without intravenous or oral contrast. Images reviewed with lung, soft tissue, and bone windows. Reconstructed coronal and sagittal MPR images revi ewed. All images stored on PACS. All CT scanners at this facility use dose modulation, iterative reconstruction, and/or weight based d osing when appropriate to reduce radiation dose to as low as reasonably achievable (ALARA). [facility]: Dose Right [facility]: CareDose [facility]: Dose Right [facility]: Teradose 4D [facility]: [employer] RADIATION DOSE: mGy. LIMITATIONS: None. FINDINGS: Stone CT LOWER CHEST: No consolidation or pleural effusion. Partially visualized bilater al breast implants. NON-CONTRASTED LIVER, SPLEEN, ADRENALS: Evaluation limited by lack of IV contrast. No identified sign ificant masses. PANCREAS: No peripancreatic inflammatory changes. GALLBLADDER: Surgically absent. RIGHT KIDNEY AND URETER: Assessment for masses limited by lack of IV contrast. No significant calci fications. No hydronephrosis or hydroureter. LEFT KIDNEY AND URETER: Assessment for masses limited by lack of IV contrast. No significant calcif ications. No hydronephrosis or hydroureter. AORTA AND RETROPERITONEUM: No abdominal aortic aneurysm. No retroperitoneal masses or hemorrhage. BOWEL AND PERITONEAL CAVITY: No dilated bowel loops or inflammatory changes. No free fluid. Air-flui d levels are seen at the colon and rectum. There is colonic diverticulosis. There is mild soft tiss ue stranding adjacent to the distal descending colon. APPENDIX: Surgically absent. PELVIS, BLADDER, AND ABDOMINAL WALL:There is streak artifact from the left hip prosthesis. The uteru s is surgically absent. No free fluid. Bladder distended. Battery pack from the TENS stimulator is s een at the soft tissues of the right gluteal region. BONES: Multilevel degenerative changes are noted in the spine. There is interval development of comp ression deformity at the superior endplate of L2 vertebral body with anterior wedging and approximate 50% loss of the vertebral body height. No posterior retropulsion. TENS stimulator wires are extend ing along the dorsal spinal canal. The patient is status post total left hip arthroplasty. IMPRESSION: 1. No hydronephrosis or urinary tract calculi. 2. Colonic diverticulosis. Mild soft tissue stranding adjacent to the distal descending colon, may b e secondary to mild/early acute diverticulitis. 3. Air-fluid levels at the colon and rectum, suggestive of diarrhea. 4. Interval development of compression deformity with anterior wedging of L2 vertebral body, of indet erminate age. Please correlate with clinical history and point tenderness to evaluate for acute frac ture. COMMENT: Quality ID # [id number]: Final reports with documentation of one or more dose reduction techniques (e.g., Automated exposure control, adjustment of the mA and/or kV according to patient size, use of iterative reconstruction technique) TECHNICAL DOCUMENTATION: JOB ID: [id number] 2010 [employer]- All Rights Reserved Reading location - IP/workstation name: [email or web address]
[2017-11-13] MEDS ORDERED: RINGERS SOLUTION,LACTATED 1,000 ML IV PRN (18:52)
[2017-11-13] MEDS ORDERED: CEFTRIAXONE SODIUM 500 MG in DEXTROSE 5%-WATER 50 ML IV ONE (19:00)
[2017-11-13] MEDS ORDERED: CEFTRIAXONE SODIUM 1,000 MG in DEXTROSE 5%-WATER 50 ML IV ONE (19:00)
--- NOTE | 2017-11-13 19:21 | PDOC H&P ---
History of Present Illness Admission Date/PCP: BRIGITTE GUTIERREZ MD Patient complains of: Dysuria and syncopal episode History of Present Illness: RUKHSANA GANDHI is a 72 year old femaleWho presents to the emergency room after standing up at home losing consciousness and having convulsive episode. Patient states she began to have dysuria yesterday throughout the day. Today the pain was increased in the pelvic area was pain on urination she felt hot did not take her temperature however. She had shaking chills. She got up to walk across the room became lightheaded her legs buckled and her helped her to the floor and then she had a brief convulsive episode.Patient is on antihypertensivesMetoprolol and telmisartan. Upon arrival in the emergency room patient was noted to have a blood pressure of 71/50 she was given 2 L of saline and her blood pressure responded. Her creatinine was elevated in the mid twos her baseline creatinine is 0.9.A CT of the head was performed which showed no acute pathology. CT of the abdomen renal stone protocol was performed which was reported by the emergency room physician as no obstructing stone no intra-abdominal pathology.Request for admission for dehydration and urinary tract infection and sepsis was made. Past Medical History Cardiac Medical History: Reports: Coronary Artery Disease, DVT, Hyperlipidema, Hypertension - medicated Denies: Myocardial Infarction Pulmonary Medical History: Denies: Asthma, Bronchitis, Chronic Obstructive Pulmonary Disease (COPD), Pneumonia Neurological Medical History: Reports: Migraine, Other - Neuropathy Denies: Seizures Malignancy Medical History: Reports: Breast Cancer - BILATERAL BREAST CANCER GI Medical History: Reports: Gastroesophageal Reflux Disease Denies: Hepatitis, Hiatal Hernia Musculoskeltal Medical History: Reports: Arthritis Psychiatric Medical History: Reports: Dementia, Depression Hematology: Denies: Anemia, Sickle Cell Disease Past Surgical History Past Surgical History: Reports: Cholecystectomy - CHOLECYSTECTOMY FEW YRS AGO, Hysterectomy, Mastectomy - restricted on left, Orthopedic Surgery - left hipx2, Bunionectomy, Other - Spinal stimulator implantation Denies: Amputation, Pacemaker Social History Smoking Status: Never Smoker Frequency of Alcohol Use: None Hx Recreational Drug Use: No Drugs: None Hx Prescription Drug Abuse: Yes Family History Family History: COPD, Other - Father with Parkinson's disease Parental Family History Reviewed: Yes Children Family History Reviewed: Yes Sibling(s) Family History Reviewed.: Yes Medication/Allergy Home Medications: Ascorbic Acid [Vitamin C 500 mg Tablet] 500 mg PO DAILY 01/04/16 Aspirin [Aspirin 81 mg Chewable Tablet] 81 mg PO DAILY 01/04/16 Cholecalciferol (Vitamin D3) [Vitamin D3 5000 unit/mL Drops] 1 ml PO ACBRKFST Diclofenac Epolamine [Flector] 1 patch TP Q12 PRN 01/04/16 Diclofenac Sodium [Voltaren] 1 applic TP BID PRN 01/04/16 Duloxetine HCl [Cymbalta] 120 mg PO DAILY 01/04/16 Esomeprazole Mag Trihydrate [Nexium] 40 mg PO DAILY 01/04/16 Fexofenadine HCl [Holley] 180 mg PO DAILY 01/04/16 Gabapentin 300 mg PO ACBRKFST 01/04/16 Gabapentin 300 mg PO ACLUNCH 01/04/16 Gabapentin 900 mg PO QHS 01/04/16 Lactobacillus Acidophilus [Probiotic] 1 cap PO DAILY 01/04/16 Melatonin 10 mg PO QHS 01/04/16 Multivit-Minerals/Folic Acid [One Daily Womens 50 Plus Tab] 1 tab PO DAILY 01/03 [place]-3 Fatty Acids/Fish Oil [Fish Oil 1,200 mg Softgel] 2 each PO WSUPPER 01/03 Ondansetron [Zofran Odt] 8 mg PO Q8H PRN 01/04/16 Suvorexant [Belsomra] 5 mg PO QHS PRN 01/04/16 Telmisartan 80 mg PO DAILY 01/04/16 Trazodone HCl 1 tab PO QHS 01/04/16 Vitamin E (Dl, Acetate) [Vitamin E 400 Unit Capsule] 2 cap PO DAILY 01/04/16 Metoprolol Tartrate [Lopressor 100 mg Tablet] 100 mg PO Q12 #60 tablet 01/07/16 Omalizumab [Xolair Inj 150 Mg Vial] 150 mg SUBCUT .[id number] 07/07/16 Allergies/Adverse Reactions: Sulfa (Sulfonamide Antibiotics) Allergy (Intermediate, Verified 07/08/16 07:21) Hives milk [Milk] Adverse Reaction (Intermediate, Verified 07/08/16 07:21) IBS Review of Systems All systems: reviewed and no additional remarkable complaints except as stated Physical Exam Vital Signs: Temp Pulse Resp BP Pulse Ox 97.5 F 71 23 H 94/54 L 94 11/13/17 13:57 11/13/17 13:57 11/13/17 15:30 11/13/17 15:30 11/13/17 15:30 Intake & Output 11/12/17 11/13/17 11/14/17 06:59 06:59 06:59 Intake Total 1000 Balance 1000 General appearance: PRESENT: no acute distress, well-developed, well-nourished Eye exam: PRESENT: conjunctiva pink, EOMI, PERRLA. ABSENT: scleral icterus Mouth exam: PRESENT: moist, neck supple Neck exam: ABSENT: carotid bruit, JVD, lymphadenopathy, thyromegaly Respiratory exam: PRESENT: clear to auscultation manoj. ABSENT: rales, rhonchi, wheezes Cardiovascular exam: PRESENT: RRR, other - Breast implant on the left. ABSENT: diastolic murmur, rubs, systolic murmur Pulses: PRESENT: normal dorsalis pedis pul Vascular exam: PRESENT: normal capillary refill GI/Abdominal exam: PRESENT: normal bowel sounds, soft, tenderness - Suprapubic tenderness no guarding no rebound. ABSENT: distended, guarding, mass, organolmegaly, rebound Rectal exam: PRESENT: deferred Extremities exam: PRESENT: full ROM. ABSENT: calf tenderness, clubbing, pedal edema Neurological exam: PRESENT: alert, awake, oriented to person, oriented to place , oriented to time, oriented to situation, CN II-XII grossly intact. ABSENT: motor sensory deficit Psychiatric exam: PRESENT: normal mood Skin exam: PRESENT: dry, intact, warm. ABSENT: cyanosis, rash Results Laboratory Results: 11/13/17 15:10 11/13/17 15:10 11/13/17 11/13/17 11/13/17 15:10 15:10 16:55 WBC 12.4 H RBC 3.99 Hgb 12.5 Hct 37.8 MCV 95 MCH 31.4 MCHC 33.2 RDW 14.5 H Plt Count 285 Seg Neutrophils % 90.4 H Lymphocytes % 6.0 L Monocytes % 2.2 L Eosinophils % 1.2 Basophils % 0.2 Absolute Neutrophils 11.2 H Absolute Lymphocytes 0.7 Absolute Monocytes 0.3 Absolute Eosinophils 0.2 Absolute Basophils 0.0 Sodium 138.5 Potassium 3.7 Chloride 106 Carbon Dioxide 21 L Anion Gap 12 BUN 19 Creatinine 2.10 H Est GFR ( Amer) 28 L Est GFR (Non-Af Amer) 23 L Glucose 111 H Calcium 9.8 Magnesium 1.9 Total Bilirubin 0.6 AST 25 ALT 12 Alkaline Phosphatase 69 Total Protein 7.7 Albumin 4.1 Urine Color STRAW Urine Appearance CLOUDY Urine pH 6.0 Ur Specific [place] 1.007 Urine Protein 30 H Urine Glucose (UA) NEGATIVE Urine Ketones NEGATIVE Urine Blood LARGE H Urine Nitrite NEGATIVE Ur Leukocyte Esterase LARGE H Urine WBC (Auto) 160 Urine RBC (Auto) 9 11/13/17 11/13/17 15:10 15:10 Creatine Kinase 65 CK-MB (CK-2) 0.82 Troponin I < 0.012 NT-Pro-B Natriuret Pep 121 Impressions: Chest X-Ray 11/13/17 14:48 IMPRESSION: NO ACUTE RADIOGRAPHIC FINDING IN THE CHEST. Head CT 11/13/17 14:48 IMPRESSION: No acute findings EVIDENCE OF ACUTE STROKE: NO. Limited or Localized CT 11/13/17 18:11 IMPRESSION: 1. No hydronephrosis or urinary tract calculi. 2. Colonic diverticulosis. Mild soft tissue stranding adjacent to the distal descending colon, may be secondary to mild/early acute diverticulitis. 3. Air-fluid levels at the colon and rectum, suggestive of diarrhea. 4. Interval development of compression deformity with anterior wedging of L2 vertebral body, of indeterminate age. Please correlate with clinical history and point tenderness to evaluate for acute fracture. Assessment & Plan - Diagnosis (1) UTI (urinary tract infection) Is this a current diagnosis for this admission?: Yes Plan: Urine cultures obtained and ER initiated on Rocephin continue 1 g dailyCBC in a.m. (2) Sepsis Is this a current diagnosis for this admission?: Yes Plan: Patient presents hypotensive with orthostatic syncope and convulsions. Elevated white count fevers reported at home and Reiger's with pyorrhea. Patient is initiated on Rocephin in the emergency room a cultures obtained and are pending. (3) Dementia Is this a current diagnosis for this admission?: Yes Plan: Continue Namenda and Aricept. (4) Peripheral neuropathy Is this a current diagnosis for this admission?: Yes Plan: Continue gabapentin indicates she is on 300 mg daily not the 3 times daily dosing in the med rec. Have asked nursing to reconfirm medications. (5) Orthostatic syncope Is this a current diagnosis for this admission?: Yes Plan: Status post 2 L with Resolution of the hypotension. We will continue lactated Ringer's at 150 an hour. BMP in a.m.Magnesium in a.m. (6) Acute renal injury Is this a current diagnosis for this admission?: Yes Plan: Creatinine greater than 2 continue hydration daily BMPs. Hold blood pressure medicines presently. (7) Hypertension Qualifiers: Hypertension type: essential hypertension Qualified Code(s): I10 - Essential (primary) hypertension Is this a current diagnosis for this admission?: Yes Plan: Hold antihypertensives particularly telmisartanAs patient has acute renal injury likely from volume depletion from urinary tract infection (8) Hyperlipidemia Qualifiers: Hyperlipidemia type: unspecified Qualified Code(s): E78.5 - Hyperlipidemia , unspecified Is this a current diagnosis for this admission?: Yes Plan: Resume statin therapy when med rec confirmed (9) CAD (coronary artery disease) Qualifiers: Coronary Disease-Associated Artery/Lesion type: [place] artery [place] vs. transplanted heart: [place] heart Associated angina: without angina Qualified Code(s): I25.10 - Atherosclerotic heart disease of [place] coronary artery without angina pectoris Is this a current diagnosis for this admission?: Yes Plan: Normal EKG no anginal complaints continue aspirin for the present hold other medicines will resume statin therapy when med rec confirmed (10) Depression Qualifiers: Depression Type: unspecified Qualified Code(s): F32.9 - Major depressive disorder, single episode, unspecified Is this a current diagnosis for this admission?: Yes Plan: Continue outpatient medicines 1 med rec confirmed - Time Time Spent: 50 to 70 Minutes Medications reviewed and adjusted accordingly: Yes Anticipated discharge: Home Within: within 48 hours
[2017-11-13] MEDS: HEPARIN SOD (PORCINE) 5,000 UNIT/ML 1 ML SYRINGE SUBCUT SCH (22:26)
[2017-11-13] MEDS: GABAPENTIN 300 MG CAPSULE PO SCH (22:26)
[2017-11-14] MEDS: HEPARIN SOD (PORCINE) 5,000 UNIT/ML 1 ML SYRINGE SUBCUT SCH ×3 (05:11→21:32)
--- NOTE | 2017-11-14 05:18 | EKG REPORT ---
SEVERITY:- NORMAL ECG - SINUS RHYTHM : Confirmed by: Js Mckinnon 14-Nov-2017 05:18:19
[2017-11-14] MEDS ORDERED: LANSOPRAZOLE 30 MG TAB.RAP.DR PO SCH (06:00)
[2017-11-14 09:08] LABS: ABSOLUTE EOSINOPHILS # (AUTO) 0.2 10^3/uL (0.0-0.6); ABSOLUTE LYMPHOCYTES (AUTO) 1.2 10^3/uL (0.5-4.7); ABSOLUTE MONOCYTES (AUTO) 0.6 10^3/uL (0.1-1.4); BASOPHILS % (AUTO) 0.4 % (0-2); EOSINOPHILS % (AUTO) 2.1 % (0-6); HEMATOCRIT 34.7 % (36.0-47.0); HEMOGLOBIN 11.8 g/dL (12.0-15.5); MEAN CORPUSCULAR HEMOGLOBIN 31.5 pg (27.0-33.4); MEAN CORPUSCULAR VOLUME 93 fl (80-97); MONOCYTES % (AUTO) 5.6 % (3-13); PLATELET COUNT 220 10^3/uL (150-450); RED BLOOD COUNT 3.74 10^6/uL (3.72-5.28); RED CELL DISTRIBUTION WIDTH 14.3 % (11.5-14.0); SEGMENTED NEUTROPHILS % (AUTO) 79.9 % (42-78); TOTAL CELLS COUNTED % (AUTO) 100 %; WHITE BLOOD COUNT 10.1 10^3/uL (4.0-10.5)
[2017-11-14] MEDS: DULOXETINE HCL 30 MG CAPSULE.DR PO SCH (09:11)
[2017-11-14] MEDS: LACTOBACILLUS ACIDOPHILUS 250 MG TAB PO SCH (09:11)
[2017-11-14 09:18] LABS: ALANINE AMINOTRANSFERASE 16 U/L (9-52); ALBUMIN 3.4 g/dL (3.5-5.0); ALKALINE PHOSPHATASE 65 U/L (38-126); ANION GAP 8 (5-19); ASPARTATE AMINO TRANSFERASE 24 U/L (14-36); BILIRUBIN,DIRECT 0.5 mg/dL (0.0-0.4); BILIRUBIN,TOTAL 0.7 mg/dL (0.2-1.3); BLOOD UREA NITROGEN 13 mg/dL (7-20); CALCIUM 8.5 mg/dL (8.4-10.2); CARBON DIOXIDE 22 mmol/L (22-30); CHLORIDE 106 mmol/L (98-107); GLUCOSE 105 mg/dL (75-110); POTASSIUM 3.1 mmol/L (3.6-5.0); SODIUM 136.3 mmol/L (137-145); TOTAL PROTEIN 6.5 g/dL (6.3-8.2)
[2017-11-14] MEDS ORDERED: CEFTRIAXONE 1 GM/D5W RTU 50 ML IV SCH (10:00)
[2017-11-14] MEDS ORDERED: LACTOBACILLUS ACIDOPHILUS PO SCH (10:00)
[2017-11-14] MEDS ORDERED: (PENDING PHARMACY ID) (Duloxetine Hcl [Cymbalta] 120 MG) PO SCH (10:00)
[2017-11-14] MEDS ORDERED: ASPIRIN 81 MG TABLET, CHEWABLE PO SCH (10:00)
--- NOTE | 2017-11-14 11:09 | PDOC PROGRESS REPORT ---
Subjective Progress Note for:: 11/14/17 Subjective:: Patient awake and alert hemodynamically stable. Creatinine now 0.9 back to baseline. Potassium low at 3.1. Patient feels significantly improved. Urine positive for gram-negative rods ID and sensitivity pending. Reason For Visit: URINARY TRACT INFECTION/SEPSIS Physical Exam Vital Signs: Temp Pulse Resp BP Pulse Ox 98.9 F 90 16 154/71 H 97 11/14/17 07:32 11/14/17 07:32 11/14/17 07:32 11/14/17 07:32 11/14/17 07:32 Intake & Output 11/13/17 11/14/17 11/15/17 06:59 06:59 06:59 Intake Total 1200 Balance 1200 Weight 71.3 kg General appearance: PRESENT: no acute distress, well-developed, well-nourished Neck exam: ABSENT: carotid bruit, JVD, lymphadenopathy, thyromegaly Respiratory exam: PRESENT: clear to auscultation manoj. ABSENT: rales, rhonchi, wheezes Cardiovascular exam: PRESENT: RRR. ABSENT: diastolic murmur, rubs, systolic murmur Extremities exam: PRESENT: full ROM. ABSENT: calf tenderness, clubbing, pedal edema Musculoskeletal exam: PRESENT: ambulatory. ABSENT: tenderness Neurological exam: PRESENT: alert, awake, CN II-XII grossly intact. ABSENT: motor sensory deficit Results Laboratory Results: 11/14/17 08:52 11/14/17 08:52 11/14/17 11/14/17 08:52 08:52 WBC 10.1 RBC 3.74 Hgb 11.8 L Hct 34.7 L MCV 93 MCH 31.5 MCHC 34.0 RDW 14.3 H Plt Count 220 Seg Neutrophils % 79.9 H Lymphocytes % 12.0 L Monocytes % 5.6 Eosinophils % 2.1 Basophils % 0.4 Absolute Neutrophils 8.0 Absolute Lymphocytes 1.2 Absolute Monocytes 0.6 Absolute Eosinophils 0.2 Absolute Basophils 0.0 Sodium 136.3 L Potassium 3.1 L Chloride 106 Carbon Dioxide 22 Anion Gap 8 BUN 13 Creatinine 0.90 Est GFR ( Amer) > 60 Est GFR (Non-Af Amer) > 60 Glucose 105 Calcium 8.5 Total Bilirubin 0.7 AST 24 ALT 16 Alkaline Phosphatase 65 Total Protein 6.5 Albumin 3.4 L Impressions: Chest X-Ray 11/13/17 14:48 IMPRESSION: NO ACUTE RADIOGRAPHIC FINDING IN THE CHEST. Head CT 11/13/17 14:48 IMPRESSION: No acute findings EVIDENCE OF ACUTE STROKE: NO. Limited or Localized CT 11/13/17 18:11 IMPRESSION: 1. No hydronephrosis or urinary tract calculi. 2. Colonic diverticulosis. Mild soft tissue stranding adjacent to the distal descending colon, may be secondary to mild/early acute diverticulitis. 3. Air-fluid levels at the colon and rectum, suggestive of diarrhea. 4. Interval development of compression deformity with anterior wedging of L2 vertebral body, of indeterminate age. Please correlate with clinical history and point tenderness to evaluate for acute fracture. Assessment & Plan - Diagnosis (1) UTI (urinary tract infection) Qualifiers: Urinary tract infection type: site unspecified Hematuria presence: with hematuria Qualified Code(s): N39.0 - Urinary tract infection, site not specified; R31.9 - Hematuria, unspecified; R31.9 - Hematuria, unspecified Is this a current diagnosis for this admission?: Yes Plan: Continue Rocephin and await ID and sensitivity. (2) Dementia Is this a current diagnosis for this admission?: Yes Plan: Continue Aricept and Namenda when dosing confirmed. (3) Sepsis Is this a current diagnosis for this admission?: Yes Plan: Resolved (4) Peripheral neuropathy Is this a current diagnosis for this admission?: Yes Plan: Continue Neurontin 300 mg nightly (5) Orthostatic syncope Is this a current diagnosis for this admission?: Yes Plan: Status post 2 L with Resolution of the hypotension. We will decrease lactated Ringer's to 75 an hour now the creatinine is normalized obtain orthostatics and begin ambulation (6) Acute renal injury Is this a current diagnosis for this admission?: Yes Plan: Creatinine now back at baseline (7) Hypertension Qualifiers: Hypertension type: essential hypertension Qualified Code(s): I10 - Essential (primary) hypertension Is this a current diagnosis for this admission?: Yes Plan: Resume metoprolol at a reduced dose of 50 mg twice daily hold Telmisartan (8) Hyperlipidemia Qualifiers: Hyperlipidemia type: unspecified Qualified Code(s): E78.5 - Hyperlipidemia , unspecified Is this a current diagnosis for this admission?: Yes Plan: Resume statin (9) CAD (coronary artery disease) Qualifiers: Coronary Disease-Associated Artery/Lesion type: [place] artery [place] vs. transplanted heart: [place] heart Associated angina: without angina Qualified Code(s): I25.10 - Atherosclerotic heart disease of [place] coronary artery without angina pectoris Is this a current diagnosis for this admission?: Yes Plan: Normal EKG no anginal complaints continue aspirin for the present hold other medicines will resume statin therapy when med rec confirmed (10) Depression Qualifiers: Depression Type: unspecified Qualified Code(s): F32.9 - Major depressive disorder, single episode, unspecified Is this a current diagnosis for this admission?: Yes Plan: Continue outpatient medicines 1 med rec confirmed (11) Hypokalemia Is this a current diagnosis for this admission?: Yes Plan: P.o. supplementation repeat BMP magnesium in a.m. - Time Time Spent with patient: 25-34 minutes Medications reviewed and adjusted accordingly: Yes Within: within 24 hours
[2017-11-14] MEDS: RINGERS SOLUTION,LACTATED 1,000 ML IV PRN (11:58)
[2017-11-14] MEDS ORDERED: POTASSIUM CHLORIDE 10 MEQ CAPSULE.ER PO ONE (12:00)
[2017-11-14] MEDS: METOPROLOL TARTRATE 50 MG TABLET PO SCH ×2 (13:06→21:31)
[2017-11-14] MEDS ORDERED: LIDOCAINE 2% INJ-PF (100 MG/5 ML) SYRINGE ONE ×2 (13:43→14:28)
[2017-11-14] MEDS ORDERED: LIDOCAINE 1% INJ-PF (10 MG/ML) 30 ML SDV ONE (14:30)
--- NOTE | 2017-11-14 16:09 | RADIOLOGY REPORT (SQ) ---
EXAM DESCRIPTION: CHEST SINGLE VIEW COMPLETED DATE/TIME: 11/14/2017 3:43 pm REASON FOR STUDY: central line placement COMPARISON: 11/13/2017 EXAM PARAMETERS: NUMBER OF VIEWS: One view. TECHNIQUE: Single frontal radiographic view of the chest acquired. RADIATION DOSE: NA LIMITATIONS: None. FINDINGS: LUNGS AND PLEURA: No opacities, masses or pneumothorax. No pleural effusion. MEDIASTINUM AND HILAR STRUCTURES: No masses. Contour normal. HEART AND VASCULAR STRUCTURES: Heart normal in size. Normal vasculature. BONES: No acute findings. HARDWARE: Interval placement of a venous access catheter via right IJ approach. Tip at the cavoatria l junction. Neurostimulator. OTHER: No other significant finding. IMPRESSION: No acute findings in the lungs. New venous access catheter in expected location. TECHNICAL DOCUMENTATION: JOB ID: [id number] [employer]- All Rights Reserved Reading location - IP/workstation name: [email or web address]
--- NOTE | 2017-11-14 17:05 | OPERATIVE REPORT E ---
Operative Report NAME: RUKHSANA GANDHI : 1945 AGE: 72Y DATE OF SURGERY: 11/14/2017 ROOM: 302 PREOPERATIVE DIAGNOSIS: POOR VEINS FOR IV ACCESS, NEEDED IV ANTIBIOTICS. POSTOPERATIVE DIAGNOSIS: POOR VEINS FOR IV ACCESS, NEEDED IV ANTIBIOTICS. OPERATION: Placement of right internal jugular vein triple-lumen catheter under ultrasound guidance. SURGEON: RACHELLE WALTER M.D. ANESTHESIA: Local. INDICATION: This 72-year-old female who needed IV antibiotics. She does not have any veins available for IV access. She had a previous mastectomy on the left side and, therefore, left arm is not being used for IV access. Therefore, a central line is being placed. DESCRIPTION OF PROCEDURE: The patient was placed in Trendelenburg position and the left neck subsequently prepped and draped in the usual sterile fashion. The right internal jugular vein was then identified and the skin above it was then anesthetized with 1% Xylocaine. Next under ultrasound guidance the vein was then punctured and a guidewire passed through the needle towards the area of the superior vena cava. The needle was removed and the puncture site dilated and a triple-lumen catheter inserted through the guidewire to a distance of about 17 cm. The guidewire was removed and all the ports aspirated blood easily, and instilled saline easily. The catheter was then anchored to the skin with 3-0 silk. A Biopatch placed at the insertion site and transparent sterile dressing placed over the Biopatch and catheter. The patient tolerated the procedure well. DICTATING PHYSICIAN: RACHELLE WALTER M.D. [id number] PHY#: [id number] ID: [id number] JOB#: [id number] ACCT: [id number] cc:RACHELLE WALTER M.D. >
[2017-11-14] MEDS: CEFTRIAXONE SODIUM 1,000 MG in NORMAL SALINE 50 ML IV SCH (17:45)
[2017-11-14] MEDS: GABAPENTIN 300 MG CAPSULE PO SCH (21:31)
[2017-11-14] MEDS: MEMANTINE HCL 10 MG TABLET PO SCH (21:31)
[2017-11-14] MEDS: POTASSIUM CHLORIDE 20 MEQ/15 ML UDCUP PO SCH (21:32)
[2017-11-15 03:43] LABS: ABSOLUTE EOSINOPHILS # (AUTO) 0.2 10^3/uL (0.0-0.6); ABSOLUTE MONOCYTES (AUTO) 0.7 10^3/uL (0.1-1.4); ABSOLUTE NEUT (AUTO) 6.7 10^3/uL (1.7-8.2); BASOPHILS % (AUTO) 0.4 % (0-2); EOSINOPHILS % (AUTO) 1.7 % (0-6); HEMATOCRIT 32.2 % (36.0-47.0); HEMOGLOBIN 10.7 g/dL (12.0-15.5); LYMPHOCYTES % (AUTO) 20.7 % (13-45); MEAN CORPUSCULAR HGB CONC 33.1 g/dL (32.0-36.0); MEAN CORPUSCULAR VOLUME 94 fl (80-97); MONOCYTES % (AUTO) 7.5 % (3-13); PLATELET COUNT 229 10^3/uL (150-450); RED BLOOD COUNT 3.45 10^6/uL (3.72-5.28); RED CELL DISTRIBUTION WIDTH 14.2 % (11.5-14.0); SEGMENTED NEUTROPHILS % (AUTO) 69.7 % (42-78); TOTAL CELLS COUNTED % (AUTO) 100 %; WHITE BLOOD COUNT 9.6 10^3/uL (4.0-10.5)
[2017-11-15 03:57] LABS: ANION GAP 5 (5-19); BLOOD UREA NITROGEN 6 mg/dL (7-20); CALCIUM 8.5 mg/dL (8.4-10.2); CARBON DIOXIDE 25 mmol/L (22-30); CHLORIDE 107 mmol/L (98-107); GLUCOSE 104 mg/dL (75-110); POTASSIUM 3.7 mmol/L (3.6-5.0); SODIUM 136.6 mmol/L (137-145)
[2017-11-15] MEDS: LANSOPRAZOLE 30 MG TAB.RAP.DR PO SCH (05:29)
[2017-11-15] MEDS: HEPARIN SOD (PORCINE) 5,000 UNIT/ML 1 ML SYRINGE SUBCUT SCH ×3 (05:29→22:45)
[2017-11-15] MEDS: ASPIRIN 81 MG TABLET, CHEWABLE PO SCH (09:30)
[2017-11-15] MEDS: LACTOBACILLUS ACIDOPHILUS 250 MG TAB PO SCH (09:30)
[2017-11-15] MEDS: POTASSIUM CHLORIDE 20 MEQ/15 ML UDCUP PO SCH (09:30)
[2017-11-15] MEDS: METOPROLOL TARTRATE 50 MG TABLET PO SCH ×2 (09:30→22:45)
[2017-11-15] MEDS: DULOXETINE HCL 30 MG CAPSULE.DR PO SCH (09:30)
[2017-11-15] MEDS: DONEPEZIL HCL 5 MG TABLET PO SCH (09:30)
[2017-11-15] MEDS: MEMANTINE HCL 10 MG TABLET PO SCH ×2 (09:36→22:45)
--- NOTE | 2017-11-15 10:34 | PDOC PROGRESS REPORT ---
Subjective Progress Note for:: 11/15/17 Subjective:: Patient awake and alert hemodynamically stable. Creatinine now 0.9 back to baseline. Potassium low at 3.7. Patient feels significantly improved. Urine positive for 2 different gram-negative rods ID and sensitivity pending. Patient had lost IV access yesterday necessitating a central line be placed by surgery. Blood pressure is normotensive on 50 mg of metoprolol twice daily. Patient's telmisartan is still being heldAnd her normal dose of metoprolol is 100. She has had no further near syncope is orthostatic events. Reason For Visit: URINARY TRACT INFECTION/SEPSIS Physical Exam Vital Signs: Temp Pulse Resp BP Pulse Ox 98.4 F 86 16 111/62 99 11/15/17 08:44 11/15/17 08:44 11/15/17 08:44 11/15/17 08:44 11/15/17 08:44 Intake & Output 11/14/17 11/15/17 11/16/17 06:59 06:59 06:59 Intake Total 1200 1350 Output Total 500 Balance 1200 850 Weight 71.3 kg 69.7 kg General appearance: PRESENT: no acute distress Neck exam: ABSENT: carotid bruit, JVD, lymphadenopathy, thyromegaly Respiratory exam: PRESENT: clear to auscultation manoj. ABSENT: rales, rhonchi, wheezes Cardiovascular exam: PRESENT: RRR. ABSENT: diastolic murmur, rubs, systolic murmur GI/Abdominal exam: PRESENT: normal bowel sounds, soft. ABSENT: distended, guarding, mass, organolmegaly, rebound, tenderness Extremities exam: ABSENT: pedal edema Musculoskeletal exam: PRESENT: full ROM. ABSENT: tenderness Results Laboratory Results: 11/15/17 03:15 11/15/17 03:15 11/14/17 11/15/17 11/15/17 15:30 03:15 03:15 WBC 9.6 RBC 3.45 L Hgb 10.7 L Hct 32.2 L MCV 94 MCH 31.0 MCHC 33.1 RDW 14.2 H Plt Count 229 Seg Neutrophils % 69.7 Lymphocytes % 20.7 Monocytes % 7.5 Eosinophils % 1.7 Basophils % 0.4 Absolute Neutrophils 6.7 Absolute Lymphocytes 2.0 Absolute Monocytes 0.7 Absolute Eosinophils 0.2 Absolute Basophils 0.0 Sodium 136.6 L Potassium 3.7 Chloride 107 Carbon Dioxide 25 Anion Gap 5 BUN 6 L Creatinine 0.66 Est GFR ( Amer) > 60 Est GFR (Non-Af Amer) > 60 Glucose 104 Lactic Acid 1.7 Calcium 8.5 Magnesium 1.7 Impressions: Head CT 11/13/17 14:48 IMPRESSION: No acute findings EVIDENCE OF ACUTE STROKE: NO. Limited or Localized CT 11/13/17 18:11 IMPRESSION: 1. No hydronephrosis or urinary tract calculi. 2. Colonic diverticulosis. Mild soft tissue stranding adjacent to the distal descending colon, may be secondary to mild/early acute diverticulitis. 3. Air-fluid levels at the colon and rectum, suggestive of diarrhea. 4. Interval development of compression deformity with anterior wedging of L2 vertebral body, of indeterminate age. Please correlate with clinical history and point tenderness to evaluate for acute fracture. Chest X-Ray 11/14/17 00:00 IMPRESSION: No acute findings in the lungs. New venous access catheter in expected location. Assessment & Plan - Diagnosis (1) UTI (urinary tract infection) Qualifiers: Urinary tract infection type: site unspecified Hematuria presence: with hematuria Qualified Code(s): N39.0 - Urinary tract infection, site not specified; R31.9 - Hematuria, unspecified; R31.9 - Hematuria, unspecified Is this a current diagnosis for this admission?: Yes Plan: Continue Rocephin and await ID and sensitivity. (2) Dementia Is this a current diagnosis for this admission?: Yes Plan: Continue Aricept and Namenda when dosing confirmed. (3) Peripheral neuropathy Is this a current diagnosis for this admission?: Yes Plan: Continue Neurontin 300 mg nightly (4) Acute renal injury Is this a current diagnosis for this admission?: Yes Plan: Creatinine now back at baselineContinue hydration for additional 24 hours. (5) Hypertension Qualifiers: Hypertension type: essential hypertension Qualified Code(s): I10 - Essential (primary) hypertension Is this a current diagnosis for this admission?: Yes Plan: Continue metoprolol at 100 mg twice daily monitor going forward. Maintain hydration. May need dose reduction on discharge of her antihypertensives. (6) Hypokalemia Is this a current diagnosis for this admission?: Yes Plan: P.o. supplementation Given. Potassium 3.7 this morning. Reduce potassium supplementation to 20 mEq daily. (7) Hyperlipidemia Qualifiers: Hyperlipidemia type: unspecified Qualified Code(s): E78.5 - Hyperlipidemia , unspecified Is this a current diagnosis for this admission?: Yes Plan: Reconciliation has not been done patient is on statin therapy but can resume this on discharge. (8) CAD (coronary artery disease) Qualifiers: Coronary Disease-Associated Artery/Lesion type: [place] artery [place] vs. transplanted heart: [place] heart Associated angina: without angina Qualified Code(s): I25.10 - Atherosclerotic heart disease of [place] coronary artery without angina pectoris Is this a current diagnosis for this admission?: Yes Plan: Normal EKG no anginal complaints continue aspirin for the present hold other medicines will resume statin therapy when med rec confirmed (9) Depression Qualifiers: Depression Type: unspecified Qualified Code(s): F32.9 - Major depressive disorder, single episode, unspecified Is this a current diagnosis for this admission?: Yes Plan: Continue outpatient medicines 1 med rec confirmed (10) Sepsis Is this a current diagnosis for this admission?: Yes Plan: Resolved (11) Orthostatic syncope Is this a current diagnosis for this admission?: Yes Plan: Resolved - Time Time Spent with patient: 15-24 minutes
[2017-11-15] MEDS: CEFTRIAXONE SODIUM 1,000 MG in NORMAL SALINE 50 ML IV SCH (17:30)
[2017-11-15] MEDS: GABAPENTIN 300 MG CAPSULE PO SCH (22:45)
[2017-11-15] MEDS ORDERED: BUTALB/ACETAMINOPHEN/CAFFEINE 1 TAB EACH PO PRN (23:59)
[2017-11-16] MEDS: RINGERS SOLUTION,LACTATED 1,000 ML IV PRN (00:32)
[2017-11-16] MEDS: LANSOPRAZOLE 30 MG TAB.RAP.DR PO SCH (05:35)
[2017-11-16] MEDS: HEPARIN SOD (PORCINE) 5,000 UNIT/ML 1 ML SYRINGE SUBCUT SCH (05:35)
[2017-11-16] MEDS: DULOXETINE HCL 30 MG CAPSULE.DR PO SCH (09:51)
[2017-11-16] MEDS: ASPIRIN 81 MG TABLET, CHEWABLE PO SCH (09:52)
[2017-11-16] MEDS: METOPROLOL TARTRATE 50 MG TABLET PO SCH (09:52)
[2017-11-16] MEDS: LACTOBACILLUS ACIDOPHILUS 250 MG TAB PO SCH (09:52)
[2017-11-16] MEDS: MEMANTINE HCL 10 MG TABLET PO SCH (09:52)
[2017-11-16] MEDS: DONEPEZIL HCL 5 MG TABLET PO SCH (09:53)
[2017-11-16] MEDS ORDERED: POTASSIUM CHLORIDE 20 MEQ/15 ML UDCUP PO SCH (10:00)
[2017-11-16 15:08] VITALS: BP 142/68
--- NOTE | 2017-11-16 18:58 | PDOC DISCHARGE SUMMARY ---
General - Admit/Disc Date/PCP Admission Date/Primary Care Provider: 11/13/17 19:30 BRIGITTE GUTIERREZ MD Discharge Date: 11/16/17 - Discharge Diagnosis (1) Acute renal injury Is this a current diagnosis for this admission?: Yes (2) CAD (coronary artery disease) Is this a current diagnosis for this admission?: Yes (3) Dementia Is this a current diagnosis for this admission?: Yes (4) Orthostatic syncope Is this a current diagnosis for this admission?: Yes - Additional Information Resuscitation Status: Full Code Discharge Diet: Cardiac Discharge Activity: Activity As Tolerated, No Driving Prescriptions: Cephalexin Monohydrate [Keflex 500 mg Capsule] 500 mg PO TID #21 capsule Duloxetine HCl [Cymbalta] 120 mg PO DAILY #60 capsule. Gabapentin [Neurontin 300 mg Capsule] 900 mg PO QHS #90 capsule Home Medications: Aspirin [Adult Aspirin] 81 mg PO DAILY 11/15/17 Atorvastatin Calcium [Lipitor 20 mg Tablet] 20 mg PO QHS 11/15/17 Bupropion HCl [Wellbutrin Xl] 150 mg PO DAILY 11/15/17 Donepezil HCl [Aricept] 10 mg PO QHS 11/15/17 Fexofenadine HCl [[place] Allergy] 180 mg PO QHS 11/15/17 L.acidoph,Paracasei, B.lactis [Probiotic] 1 each PO DAILY 11/15/17 Liothyronine Sodium [Cytomel] 5 mcg PO DAILY 11/15/17 Melatonin [Melatonin 3 mg Tablet] 3 mg PO QHS 11/15/17 Memantine HCl [Namenda 10 mg Tablet] 10 mg PO DAILY 11/15/17 Metoprolol Succinate [Toprol Xl] 75 mg PO DAILY 11/15/17 Pantoprazole Sodium [Protonix] 40 mg PO QHS 11/15/17 Pramipexole Di-HCl [Mirapex 0.5 mg Tablet] 0.5 mg PO QHS 11/15/17 Telmisartan [Micardis 80 mg Tablet] 80 mg PO DAILY 11/15/17 Trazodone HCl [Desyrel] 100 mg PO QHS 11/15/17 Cephalexin Monohydrate [Keflex 500 mg Capsule] 500 mg PO TID #21 capsule Duloxetine HCl [Cymbalta] 120 mg PO DAILY #60 capsule. 11/16/17 Gabapentin [Neurontin 300 mg Capsule] 900 mg PO QHS #90 capsule 11/16/17 History of Present Illness History of Present Illness: RUKHSANA GANDHI is a 72 year old femaleWho presents to the emergency room after standing up at home losing consciousness and having convulsive episode. Patient states she began to have dysuria yesterday throughout the day. Today the pain was increased in the pelvic area was pain on urination she felt hot did not take her temperature however. She had shaking chills. She got up to walk across the room became lightheaded her legs buckled and her helped her to the floor and then she had a brief convulsive episode.Patient is on antihypertensivesMetoprolol and telmisartan. Upon arrival in the emergency room patient was noted to have a blood pressure of 71/50 she was given 2 L of saline and her blood pressure responded. Her creatinine was elevated in the mid twos her baseline creatinine is 0.9.A CT of the head was performed which showed no acute pathology. CT of the abdomen renal stone protocol was performed which was reported by the emergency room physician as no obstructing stone no intra-abdominal pathology.Request for admission for dehydration and urinary tract infection and sepsis was made. Hospital Course Hospital Course: The patient was admitted to a medical bed. She was given IV fluids, IV antibiotics, and antiemetics. She was continued on her home medications as possible. The Her orthostasis had resolved, and she was ambulated in the halls without difficulty.The patient's urine culture grew out E. Coli and Enterococcus Gergoviae and is pretty much monsivais sensitive except for having only intermediate susceptibility to ampicillin. She was discharged to home in good condition today. Physical Exam Vital Signs: Temp Pulse Resp BP Pulse Ox 97.9 F 74 17 142/68 H 99 11/16/17 15:03 11/16/17 15:03 11/16/17 15:03 11/16/17 15:03 11/16/17 15:03 Intake & Output 11/15/17 11/16/17 11/17/17 06:59 06:59 06:59 Intake Total 2400 2160 200 Output Total 500 300 Balance 1900 2160 -100 Weight 69.7 kg 68.9 kg General appearance: PRESENT: no acute distress, cooperative Respiratory exam: PRESENT: other - No incraesed work of breathing.. ABSENT: rales, rhonchi, wheezes Cardiovascular exam: PRESENT: RRR. ABSENT: diastolic murmur, gallop, rubs, +S2 Pulses: PRESENT: normal dorsalis pedis pul GI/Abdominal exam: PRESENT: normal bowel sounds, soft. ABSENT: distended, hernia, mass, organolmegaly, tenderness Extremities exam: PRESENT: pedal edema. ABSENT: clubbing, full ROM, tenderness Musculoskeletal exam: PRESENT: normal inspection. ABSENT: deformity, dislocation, tenderness Neurological exam: PRESENT: alert, awake, oriented to person, oriented to place , oriented to time, oriented to situation Psychiatric exam: PRESENT: appropriate affect, normal mood Skin exam: PRESENT: dry, intact, warm Results Laboratory Results: 11/15/17 03:15 11/15/17 03:15 Impressions: Head CT 11/13/17 14:48 IMPRESSION: No acute findings EVIDENCE OF ACUTE STROKE: NO. Limited or Localized CT 11/13/17 18:11 IMPRESSION: 1. No hydronephrosis or urinary tract calculi. 2. Colonic diverticulosis. Mild soft tissue stranding adjacent to the distal descending colon, may be secondary to mild/early acute diverticulitis. 3. Air-fluid levels at the colon and rectum, suggestive of diarrhea. 4. Interval development of compression deformity with anterior wedging of L2 vertebral body, of indeterminate age. Please correlate with clinical history and point tenderness to evaluate for acute fracture. Chest X-Ray 11/14/17 00:00 IMPRESSION: No acute findings in the lungs. New venous access catheter in expected location. Qualifiers - * PATIENT BEING DISCHARGED WITH ANY OF THE FOLLOWING DIAGNOSIS: No
== END 2017-11-16 15:59 | disposition home or self-care (01) | DRG 683 ==
LOC: ER 13:48 → EH 19:30 → 3N 11-14 00:53
PROVIDERS: ADMIT Internal Medicine; ATTEND Internal Medicine
PROC: 02HV33Z Insertion of Infusion Device into Superior Vena Cava, Percutaneous Approach (ICD-10-PCS; principal; 2017-11-14)
PROC: B548ZZA Ultrasonography of Superior Vena Cava, Guidance (ICD-10-PCS; 2017-11-14)
DX: N17.9 Acute kidney failure, unspecified (principal); N39.0 Urinary tract infection, site not specified; B96.20 Unspecified Escherichia coli [E. coli] as the cause of diseases classified elsewhere; B95.2 Enterococcus as the cause of diseases classified elsewhere; E86.0 Dehydration; I95.1 Orthostatic hypotension; I25.10 Atherosclerotic heart disease of native coronary artery without angina pectoris; F03.90 Unspecified dementia, unspecified severity, without behavioral disturbance, psychotic disturbance, mood disturbance, and anxiety; Z79.82 Long term (current) use of aspirin; Z79.899 Other long term (current) drug therapy; E78.5 Hyperlipidemia, unspecified; I10 Essential (primary) hypertension; Z86.718 Personal history of other venous thrombosis and embolism; Z85.3 Personal history of malignant neoplasm of breast; K21.9 Gastro-esophageal reflux disease without esophagitis; M19.90 Unspecified osteoarthritis, unspecified site; F32.9 Major depressive disorder, single episode, unspecified; Z90.49 Acquired absence of other specified parts of digestive tract; Z90.10 Acquired absence of unspecified breast and nipple; Z90.710 Acquired absence of both cervix and uterus; Z88.2 Allergy status to sulfonamides; Z91.011 Allergy to milk products; E87.6 Hypokalemia; Z59.1 Inadequate housing
CPT/HCPCS: 36415; 70450; 71045; 71046; 76380; 80048; 80053; 80307; 81001; 82550; 82553; 83605; 83735; 83880; 84484; 85025; 87086; 87088; 87186; 87493; 93005; 93010; 96360; 96361; 99291; C1751; J0696; J1644; J2001; J3490

== ENCOUNTER 2017-11-21 08:47 | Day surgery (SDC) | payer MEDICARE, BC, OTHER ==
[~2017-11-21 08:47] MED LIST changes: -EPINEPHRINE INJ 1 MG/10 ML DISP.SYRIN ONE; -FENTANYL CITRATE INJ/PF 100 MCG/2 ML AMPUL ONE; -FLUMAZENIL INJ 0.5 MG/5 ML VIAL IV ONE; -GLUCAGON,HUMAN RECOMB 1 MG INJ ONE; -GLYCOPYRROLATE INJ 0.4 MG/2 ML VIAL ONE; -LIDOCAINE 2% JELLY 30 ML TUBE ONE; -MIDAZOLAM 2 MG/2 ML INJ ONE; -NALOXONE HCL INJ/PF 0.4 MG/1 ML SDV ONE; -ONDANSETRON HCL INJ/PF 4 MG/2 ML SDV ONE; +PROPOFOL INJ 200 MG/20 ML VIAL IV ONE
[2017-11-21 11:14] VITALS: BP 141/65
--- NOTE | 2017-11-21 12:42 | Operative Report ---
Operative Report DATE OF SURGERY: 11/21/17 Operative Report: The risks, benefits and alternatives of the procedure including the risks of bleeding, perforation requiring surgery are explained to the patient in detail and informed consent is obtained. The patient is taken back to the endoscopy suite and placed in a left, lateral decubital position. Timeout was called. Propofol medication is administered. A rectal examination is done which did not reveal any masses, tears or fissures. An Olympus videoscope was inserted into the patient's rectum. The scope was then carefully advanced all the way to the cecum. The cecum was identified by the usual anatomical landmarks including the ileocecal valve as well as the appendiceal office. Photodocumentation is obtained. The scope was then sequentially pulled back via the various segments of the colon including the ascending colon, hepatic flexure, transverse colon, splenic flexure, descending colon and finally into the rectosigmoid portions of the colon. Retroflexion maneuver is performed. PREOPERATIVE DIAGNOSIS: Personal history of polyps. POSTOPERATIVE DIAGNOSIS: No polyps noted but there is random areas of inflammation on both the left side which are associated with some diverticulosis. And on the right side random biopsies obtained to rule out for lymphocytic, microscopic, collagenous colitis. Internal hemorrhoids OPERATION: Colonoscopy with biopsy SURGEON: MANDY FUENTES ANESTHESIA: LMAC TISSUE REMOVED OR ALTERED: As noted above COMPLICATIONS: None. ESTIMATED BLOOD LOSS: None. INTRAOPERATIVE FINDINGS: As noted above. PROCEDURE: Patient tolerated the procedure well. No immediate postprocedure complications are noted. Patient discharged in good condition. Discharge date 11/21/2017. Discharge diet: Regular. Discharge activity: Regular. 2-3 week follow-up to discuss findings. We will went up pathology. Patient to call the office or proceed to the emergency room should there be any further problems or questions.
== END 2017-11-21 11:03 | disposition home or self-care (01) ==
LOC: END 08:47
PROVIDERS: ATTEND Internal Medicine Gastroenterology
DX: K57.30 Diverticulosis of large intestine without perforation or abscess without bleeding (principal); K64.8 Other hemorrhoids; K58.0 Irritable bowel syndrome with diarrhea; Z86.010 Personal history of colon polyps; I10 Essential (primary) hypertension; K21.9 Gastro-esophageal reflux disease without esophagitis; E07.9 Disorder of thyroid, unspecified; M19.90 Unspecified osteoarthritis, unspecified site; I48.0 Paroxysmal atrial fibrillation; F03.90 Unspecified dementia, unspecified severity, without behavioral disturbance, psychotic disturbance, mood disturbance, and anxiety; Z96.649 Presence of unspecified artificial hip joint; Z79.899 Other long term (current) drug therapy; Z88.2 Allergy status to sulfonamides; Z79.82 Long term (current) use of aspirin; Z85.3 Personal history of malignant neoplasm of breast; Z86.718 Personal history of other venous thrombosis and embolism
CPT/HCPCS: 45380; 88305 ×2; J2704; 811

== ENCOUNTER → 2018-01-26 | Outpatient (CLI) | payer MEDICARE, BC, OTHER ==
--- NOTE | 2018-01-26 12:18 | RADIOLOGY REPORT (SQ) ---
EXAM DESCRIPTION: CHEST PA/LATERAL COMPLETED DATE/TIME: 01/26/2018 12:01 pm REASON FOR STUDY: MALIGNANT NEOPLASM OF UNSPECIFIED SITE OF LEFT FEMALE BREAST,PAIN UNSP COMPARISON: 11/13/2017. EXAM PARAMETERS: NUMBER OF VIEWS: two views TECHNIQUE: Digital Frontal and Lateral radiographic views of the chest acquired. RADIATION DOSE: NA LIMITATIONS: none FINDINGS: LUNGS AND PLEURA: No opacities, masses or pneumothorax. No pleural effusion. MEDIASTINUM AND HILAR STRUCTURES: No masses or contour abnormalities. HEART AND VASCULAR STRUCTURES: Heart normal size. No evidence for failure. BONES: No acute findings. HARDWARE: Spinal stimulator electrodes. OTHER: No other significant finding. IMPRESSION: NO SIGNIFICANT RADIOGRAPHIC FINDING IN THE CHEST. TECHNICAL DOCUMENTATION: JOB ID: [id number] [employer]- All Rights Reserved Reading location - IP/workstation name: [email or web address]
== END ==
LOC: OD 11:46
PROVIDERS: ATTEND Internal Medicine Medical Oncology
DX: C50.912 Malignant neoplasm of unspecified site of left female breast (principal); R60.9 Edema, unspecified; R52 Pain, unspecified
CPT/HCPCS: 71046

== ENCOUNTER → 2018-01-31 | Outpatient (CLI) | payer MEDICARE, BC, OTHER ==
--- NOTE | 2018-01-31 15:23 | WOMENS IMAGING REPORT ---
EXAM DESCRIPTION: U/S BREAST UNILATERAL, COMPL COMPLETED DATE/TIME: 01/31/2018 1:50 pm REASON FOR STUDY: BREAST CANCER, EDEMA, PAIN C50.912 MALIGNANT NEOPLASM OF UNSPECIFIED SITE OF LEFT FEMAL R60.9 EDEMA, UNSPECIFIED R52 PAIN, UNSPECIFIED COMPARISON: 05/17/2017 bilateral mammograms TECHNIQUE: Real-time and static grayscale imaging performed of the left breast targeted to the area of clinical concern. Selected color Doppler images recorded. LIMITATIONS: None. FINDINGS: Patient is post left breast skin sparing mastectomy. She states the left breast has becom e harder over the last month. Ultrasound of the left breast demonstrates that the implant is intact. No masses along the superfici al surface of the implant. No fluid around the implant. IMPRESSION: No suspicious findings detected by ultrasound. BIRAD: 1 Negative. RECOMMENDATION: RECOMMENDED FOLLOW-UP: Follow-up as clinically indicated. COMMENT: The [employer] (A[employer]) has developed recommendations for screening MRI of the breasts in certain patient populations, to be used in conjunction with mammography. Breast MRI s urveillance may be appropriate for women with more than 20% lifetime risk of developing breast cancer as determined by genetic testing, significant family history of the disease, or history of mantle r adiation for Hodgkins Disease. ACR Practice Guidelines 2008. TECHNICAL DOCUMENTATION: JOB ID: [id number] [employer]- All Rights Reserved Reading location - IP/workstation name: [email or web address]
== END ==
LOC: WI 13:22
PROVIDERS: ATTEND Internal Medicine Medical Oncology
DX: C50.912 Malignant neoplasm of unspecified site of left female breast (principal); R60.9 Edema, unspecified; N64.4 Mastodynia; Z90.12 Acquired absence of left breast and nipple; Z98.82 Breast implant status
CPT/HCPCS: 76641

== ENCOUNTER → 2019-04-23 | Outpatient (CLI) | payer MEDICARE, BC, OTHER ==
--- NOTE | 2019-04-23 14:47 | WOMENS IMAGING REPORT ---
EXAM DESCRIPTION: BONE DENSITY HIP/SPINE COMPLETED DATE/TIME: 04/23/2019 2:16 pm REASON FOR STUDY: M81.0 AGE-RELATED OSTEOPOROSIS WITHOUT CURRENT PATHOLOGICAL FRACTURE M81.0 AGE-RE LATED OSTEOPOROSIS W/O CURRENT PATHOLOGICAL FRAC COMPARISON: None. TECHNIQUE: Dual-Energy X-ray Absorptiometry (DEXA) of the AP Spine and Hip. LIMITATIONS: None. FINDINGS: LUMBAR SPINE: The bone mineral density (BMD) measured from L1-L4 in the AP projection correlates with a T-score of 1.0, which is normal as defined by the World Health Organization. BMD Change vs Baseline: N/A HIP: The bone mineral density (BMD) measured in the left hip correlates with a T-score of -0.8 in the femo ral neck, which is normal as defined by the World Health Organization. BMD Change vs Baseline: N/A 10 year Fracture Risk Assessment: Major Osteoporotic Fracture: Not available. Hip Fracture: Not available. IMPRESSION: 1. LUMBAR SPINE WHO CLASSIFICATION: Normal 2. HIP WHO CLASSIFICATION: Normal OVERALL ASSESSMENT: WHO CLASSIFICATION: Normal COMMENT: The World Health Organization defines low BMD as follows: T-score: Normal: Greater than -1.0 Osteopenia: Between -1.0 and -2.5 Osteoporosis: Less than -2.5 without fractures Established osteoporosis: Less than -2.5 with fractures In general, you may wish to consider: Diagnosis Treatment Follow-up DEXA Normal BMD Prevention 2-3 years Osteopenia Prevention/Therapy 1-2 years Osteoporosis Therapy Yearly TECHNICAL DOCUMENTATION: JOB ID: [id number] 2010 [employer]- All Rights Reserved Reading location - IP/workstation name: [email or web address]
== END ==
LOC: WI 13:15
PROVIDERS: ATTEND Internal Medicine Hematology & Oncology
DX: M81.0 Age-related osteoporosis without current pathological fracture (principal)
CPT/HCPCS: 77080

== ENCOUNTER 2019-07-26 02:34 | Observation (INO) | payer BC, MEDICARE, OTHER ==
[2019-07-26] MEDS ORDERED: NORMAL SALINE 1000 ML 1,000 ML IV ONE ×2 (03:32→05:03)
[2019-07-26 03:46] LABS: INTERNATIONAL RATION (INR) 0.97; PROTHROMBIN TIME 12.9 SEC (11.4-15.4)
--- NOTE | 2019-07-26 04:32 | RADIOLOGY REPORT (SQ) ---
EXAM DESCRIPTION: XR CHEST 2 VIEWS COMPLETED DATE/TME: 07/26/2019 03:31 CLINICAL HISTORY: 73 years, Female, eval for pneumonia COMPARISON: 01/26/2018 chest NUMBER OF VIEWS: 2 TECHNIQUE: 2 views of the chest LIMITATIONS: None. FINDINGS: The heart size is normal. Stimulating wires project over the mid thoracic spine. Subsegmental atelectasis in the perihilar regions bilaterally. No pneumothorax IMPRESSION: No acute cardiopulmonary process copyright 2010 [employer]- All Rights Reserved
--- NOTE | 2019-07-26 04:34 | RADIOLOGY REPORT (SQ) ---
CT CERVICAL SPINE: 07/26/2019 3:32 AM CDT TECHNIQUE: Axial contiguous images were obtained through the cervical spine without intravenous contrast. Sagittal and coronal reconstructions were also reviewed. This exam was performed according to our departmental dose-optimization program, which includes automated exposure control, adjustment of the mA and/or KV according to the patient's size and/or use of iterative reconstruction technique. COMPARISON: None available INDICATION: 73-year old patient with neck pain, trauma. FINDINGS: The vertebral body heights appear well maintained. A few anterior degenerative osteophytes are seen at the cervical spine. No significant pre-vertebral soft tissue swelling is noted. No definite fracture or subluxation is noted. Mild to moderate multilevel intervertebral disc space narrowing is seen. 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 There is mild retrolisthesis of C6 over C7 by 2 mm. There is mild bilateral neural foraminal narrowing noted throughout the lower cervical spine. The visualized brain parenchyma appears unremarkable. The craniocervical junction is unremarkable. IMPRESSION: There are no findings to suggest an acute fracture or subluxation within the cervical spine. Multilevel degenerative changes are seen at the cervical spine.
--- NOTE | 2019-07-26 04:36 | RADIOLOGY REPORT (SQ) ---
CT of the head: 07/26/2019 3:33 AM CDT HISTORY: 73-year-old patient with head trauma, confusion. COMPARISON: CT the head from 11/13/2017 TECHNIQUE: Multiple axial contiguous images were obtained through the head without intravenous contrast administered. This exam was performed according to our departmental dose-optimization program, which includes automated exposure control, adjustment of the mA and/or KV according to the patient's size and/or use of iterative reconstruction technique. FINDINGS: The ventricles and cerebral sulci demonstrate mild prominence, consistent with cerebral atrophy. There are mild periventricular hypodensities, suggestive of periventricular white matter changes. The iqbal-white matter differentiation is within normal limits. Both orbits appear unremarkable. The mastoid air cells appear clear. There is opacification of the sphenoid sinuses. The calvarium is intact. No extra-axial fluid collection is seen. No midline shift or mass effect is apparent. There are no findings to suggest acute intracranial hemorrhage. IMPRESSION: 1. No acute intracranial hemorrhage is seen. 2. Mild cerebral atrophy and periventricular white matter changes are seen.
[2019-07-26 04:45] LABS: APPEARANCE,URINE SLIGHTLY-CLOUDY; BILIRUBIN,URINE NEGATIVE (NEGATIVE); COLOR,URINE YELLOW; GLUCOSE, URINE NEGATIVE (NEGATIVE); KETONES,URINE NEGATIVE (NEGATIVE); PROTEIN,URINE 100 mg/dL (NEGATIVE); URINE SPECIFIC GRAVITY 1.023; UROBILINOGEN,URINE NEGATIVE mg/dL (<2.0)
[2019-07-26 04:45] LABS: VENOUS BLOOD BASE EXCESS -2.1 mmol/L; VENOUS BLOOD HCO3 25.4 mmol/L (20-32); VENOUS BLOOD PH 7.28 (7.30-7.42)
[2019-07-26 04:53] LABS: ABSOLUTE BASOPHILS # (AUTO) 0.1 10^3/uL (0.0-0.2); ABSOLUTE EOSINOPHILS # (AUTO) 0.2 10^3/uL (0.0-0.6); ABSOLUTE LYMPHOCYTES (AUTO) 1.9 10^3/uL (0.5-4.7); ABSOLUTE MONOCYTES (AUTO) 0.7 10^3/uL (0.1-1.4); ABSOLUTE NEUT (AUTO) 9.3 10^3/uL (1.7-8.2); BASOPHILS % (AUTO) 0.4 % (0-2); EOSINOPHILS % (AUTO) 1.6 % (0-6); HEMATOCRIT 37.6 % (36.0-47.0); HEMOGLOBIN 12.6 g/dL (12.0-15.5); LYMPHOCYTES % (AUTO) 15.3 % (13-45); MEAN CORPUSCULAR HEMOGLOBIN 32.6 pg (27.0-33.4); MEAN CORPUSCULAR HGB CONC 33.6 g/dL (32.0-36.0); MEAN CORPUSCULAR VOLUME 97 fl (80-97); MONOCYTES % (AUTO) 5.4 % (3-13); PLATELET COUNT 304 10^3/uL (150-450); RED BLOOD COUNT 3.88 10^6/uL (3.72-5.28); RED CELL DISTRIBUTION WIDTH 15.5 % (11.5-14.0); SEGMENTED NEUTROPHILS % (AUTO) 77.3 % (42-78); TOTAL CELLS COUNTED % (AUTO) 100 %; WHITE BLOOD COUNT 12.1 10^3/uL (4.0-10.5)
[2019-07-26 04:54] LABS: ALBUMIN 4.1 g/dL (3.5-5.0); ALKALINE PHOSPHATASE 80 U/L (38-126); ANION GAP 8 (5-19); ASPARTATE AMINO TRANSFERASE 54 U/L (14-36); BILIRUBIN,TOTAL 0.5 mg/dL (0.2-1.3); BLOOD UREA NITROGEN 25 mg/dL (7-20); CALCIUM 9.8 mg/dL (8.4-10.2); CARBON DIOXIDE 27 mmol/L (22-30); CHLORIDE 102 mmol/L (98-107); GLUCOSE 100 mg/dL (75-110); POTASSIUM 4.3 mmol/L (3.6-5.0); TOTAL PROTEIN 7.6 g/dL (6.3-8.2)
--- NOTE | 2019-07-26 04:54 | ER Document Report ---
ED General - General Chief Complaint: Low Blood Pressure Stated Complaint: HYPOTENSION Time Seen by Provider: 07/26/19 03:24 Mode of Arrival: Medic Information source: Patient TRAVEL OUTSIDE OF THE [place] IN LAST 30 DAYS: No - HPI Onset: Other - over the last 12-24 hours Onset/Duration: Gradual Quality of pain: Achy - in head and neck Severity: Moderate Pain Level: 1 Associated symptoms: Weakness, Other - dizziness Exacerbated by: Walking Relieved by: Denies Similar symptoms previously: No Recently seen / treated by doctor: No Notes: 73 year old female with a history of CAD, HTN, HLD, DVT, GERD, Breast CA, Dementia, Depression brought to the ER by EMS for weakness, trouble ambulating and hypotension. The patient is usually able to ambulate on he own but has had difficulty over the last 12-24 hours apparently. The patient is alert and oriented to person, place, situation but not to time. Patient herself feels a little confused. Patient thinks she fell out of bed and she now has some pain in her head and neck. Patient denies nausea, vomiting, diarrhea, urinary symptoms, cough. - Related Data Allergies/Adverse Reactions: Sulfa (Sulfonamide Antibiotics) Allergy (Intermediate, Verified 11/21/17 09:02) Hives milk [Milk] Adverse Reaction (Intermediate, Verified 11/21/17 09:02) IBS Past Medical History - General Information source: Patient - Social History Smoking Status: Never Smoker Chew tobacco use (# tins/day): No Frequency of alcohol use: None Drug Abuse: None Lives with: Spouse/Significant other Family History: Reviewed & Not Pertinent Patient has homicidal ideation: No - Past Medical History Cardiac Medical History: Reports: Hx Coronary Artery Disease, Hx DVT, Hx Hypercholesterolemia, Hx Hypertension - medicated Denies: Hx Heart Attack Pulmonary Medical History: Denies: Hx Asthma, Hx Bronchitis, Hx COPD, Hx Pneumonia Neurological Medical History: Reports: Hx Migraine. Denies: Hx Cerebrovascular Accident, Hx Seizures Renal/ Medical History: Denies: Hx Peritoneal Dialysis Malignancy Medical History: Reports: Hx Breast Cancer - BILATERAL BREAST CANCER GI Medical History: Reports: Hx Gastroesophageal Reflux Disease. Denies: Hx Hepatitis, Hx Hiatal Hernia, Hx Ulcer Musculoskeletal Medical History: Reports Hx Arthritis Psychiatric Medical History: Reports: Hx Dementia, Hx Depression Infectious Medical History: Denies: Hx Hepatitis Past Surgical History: Reports: Hx Breast Surgery, Hx Cholecystectomy - CHOLECYSTECTOMY FEW YRS AGO, Hx Hysterectomy, Hx Mastectomy - restricted on left, Hx Orthopedic Surgery - left hipx2, Other - Spinal stimulator implantation. Denies: Hx Open Heart Surgery, Hx Pacemaker - Immunizations Immunizations up to date: No Hx Diphtheria, Pertussis, Tetanus Vaccination: Yes Hx Pneumococcal Vaccination: 11/28/14 Review of Systems - Review of Systems Constitutional: Diaphoresis, Weakness EENT: No symptoms reported Cardiovascular: Dizziness, Other - low blood pressure Respiratory: No symptoms reported Gastrointestinal: No symptoms reported Genitourinary: No symptoms reported Female Genitourinary: No symptoms reported Musculoskeletal: No symptoms reported Skin: No symptoms reported Hematologic/Lymphatic: No symptoms reported Neurological/Psychological: Confusion -: Yes All other systems reviewed and negative Physical Exam - Vital signs Vitals: Resp Pulse Ox 28 H 92 07/26/19 02:41 07/26/19 02:41 - Notes Notes: GENERAL: Well-appearing, well-nourished and in no acute distress. HEAD: Atraumatic, normocephalic. EYES: Pupils equal round and reactive to light, extraocular movements intact, sclera anicteric, conjunctiva are normal. ENT: External ears normal, nares patent, oropharynx clear without exudates. Mo ist mucous membranes. NECK: Normal range of motion, supple without lymphadenopathy or JVD. LUNGS: Breath sounds clear to auscultation bilaterally and equal. No wheezes rales or rhonchi. HEART: Regular rate and rhythm without murmurs, rubs or gallops. ABDOMEN: Soft, nontender, normoactive bowel sounds. No guarding, no rebound. No masses appreciated. EXTREMITIES: Normal range of motion, no pitting or edema. No clubbing or cyanosis. NEUROLOGICAL: Cranial nerves II through XII grossly intact. Normal speech, normal gait. Patient oriented to person, place, situation but not to time. PSYCH: Normal mood, normal affect. SKIN: Warm, Dry, normal turgor, no rashes or lesions noted. Course - Re-evaluation Re-evalutation: 07/26/19 05:04 The patient has been weak and has been having some trouble ambulating. She was hypotensive at home with EMS and she appeared rather clinically dry on ER arrival. Patient's labs consistent with dehydration as well (mild VAZQUEZ, mild acidosis). Patient is not febrile and she has no source of infection found making sepsis unlikely. Patient admitted for OBs since she is unsteady on her feet, has an acidosis, and has VAZQUEZ. Patient normally can ambulate on her own and she has been unable to do this over the last 12-24 hours. - Vital Signs Vital signs: Temp Pulse Resp BP Pulse Ox 97.7 F 16 118/53 L 96 07/26/19 03:16 07/26/19 03:14 07/26/19 03:14 07/26/19 03:14 - Laboratory Result Diagrams: 07/26/19 04:15 07/26/19 04:15 Laboratory results interpreted by me: 07/26/19 07/26/19 07/26/19 04:15 04:15 04:15 WBC 12.1 H RDW 15.5 H Absolute Neuts (auto) 9.3 H VBG pH 7.28 L Sodium BUN Creatinine Est GFR ( Amer) Est GFR (MDRD) Non-Af Lactic Acid 2.6 H AST Urine Protein Urine Ascorbic Acid 07/26/19 07/26/19 04:15 04:27 WBC RDW Absolute Neuts (auto) VBG pH Sodium 136.8 L BUN 25 H Creatinine 1.45 H Est GFR ( Amer) 43 L Est GFR (MDRD) Non-Af 35 L Lactic Acid AST 54 H Urine Protein 100 H Urine Ascorbic Acid 40 H - Diagnostic Test Radiology reviewed: Image reviewed, Reports reviewed - EKG Interpretation by Sd EKG shows normal: Sinus rhythm, Pitcher, Intervals, QRS Complexes, ST-T Waves Rate: Normal Rhythm: NSR Discharge - Discharge Clinical Impression: Dehydration, Acidosis Hypotension Qualifiers: Hypotension type: idiopathic hypotension Qualified Code(s): I95.0 - Idiopathic hypotension Acute kidney failure Qualifiers: Acute renal failure type: unspecified Qualified Code(s): N17.9 - Acute kidney failure, unspecified Condition: Stable Disposition: ADMITTED OBSERVATION Admitting Provider: Fausto (Hospitalist) Unit Admitted: Medical Floor
[2019-07-26] MEDS ORDERED: MAG HYDROX/AL HYDROX/SIMETH SUSP 30 ML UDCUP PO PRN (06:13)
[2019-07-26] MEDS ORDERED: MAGNESIUM HYDROXIDE SUSP 30 ML UDCUP PO PRN (06:13)
[2019-07-26] MEDS ORDERED: ONDANSETRON HCL INJ/PF 4 MG/2 ML SDV IV PRN (06:13)
[2019-07-26] MEDS ORDERED: ACETAMINOPHEN 325 MG TABLET PO PRN (06:18)
[2019-07-26] MEDS ORDERED: LORAZEPAM INJ 2 MG/1 ML VIAL IV PRN (06:18)
[2019-07-26] MEDS ORDERED: MORPHINE SULFATE 10 MG/ML INJ IV PRN ×4 (06:18→06:23)
[2019-07-26] MEDS ORDERED: HYDRALAZINE HCL INJ/PF 20 MG/1 ML SDV IV PRN (06:18)
[2019-07-26] MEDS ORDERED: GUAIFENESIN SYRP 200 MG/10 ML UDC PO PRN (06:18)
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
--- NOTE | 2019-07-26 07:19 | EKG REPORT ---
SEVERITY:- NORMAL ECG - SINUS RHYTHM : Confirmed by: Yao Greenwood MD 26-Jul-2019 07:18:25
[2019-07-26] MEDS: DOCUSATE SODIUM 100 MG CAPSULE PO SCH ×2 (09:11→17:06)
[2019-07-26] MEDS: RINGERS SOLUTION,LACTATED 1,000 ML IV PRN ×2 (09:53→21:41)
[2019-07-26 13:22] LABS: CREATINE KINASE MB 1.17 ng/mL (<4.55)
[2019-07-26] MEDS: IBUPROFEN 600 MG TABLET PO PRN ×2 (13:25→21:37)
[2019-07-26] MEDS: HEPARIN SOD (PORCINE) 5,000 UNIT/ML 1 ML VIAL SUBCUT SCH ×2 (13:25→21:34)
[2019-07-26 13:34] LABS: TROPONIN I < 0.012 ng/mL
[2019-07-26 18:48] LABS: CREATINE KINASE MB 1.46 ng/mL (<4.55)
[2019-07-26 18:51] LABS: TROPONIN I < 0.012 ng/mL
[2019-07-27 01:13] LABS: CREATINE KINASE MB 1.08 ng/mL (<4.55)
[2019-07-27 01:26] LABS: TROPONIN I < 0.012 ng/mL
[2019-07-27] MEDS: HEPARIN SOD (PORCINE) 5,000 UNIT/ML 1 ML VIAL SUBCUT SCH ×2 (05:02→05:23)
[2019-07-27] MEDS: RINGERS SOLUTION,LACTATED 1,000 ML IV PRN ×2 (05:24→11:10)
[2019-07-27] MEDS ORDERED: PANTOPRAZOLE SODIUM 40 MG TABLET.DR PO SCH (06:00)
[2019-07-27 06:35] LABS: HEMATOCRIT 34.5 % (36.0-47.0); HEMOGLOBIN 11.6 g/dL (12.0-15.5); MEAN CORPUSCULAR HEMOGLOBIN 32.9 pg (27.0-33.4); MEAN CORPUSCULAR HGB CONC 33.6 g/dL (32.0-36.0); MEAN CORPUSCULAR VOLUME 98 fl (80-97); PLATELET COUNT 239 10^3/uL (150-450); RED BLOOD COUNT 3.54 10^6/uL (3.72-5.28); RED CELL DISTRIBUTION WIDTH 15.5 % (11.5-14.0); WHITE BLOOD COUNT 6.1 10^3/uL (4.0-10.5)
[2019-07-27 06:54] LABS: ANION GAP 6 (5-19); BLOOD UREA NITROGEN 14 mg/dL (7-20); CALCIUM 8.9 mg/dL (8.4-10.2); CARBON DIOXIDE 25 mmol/L (22-30); CHLORIDE 105 mmol/L (98-107); CHOLESTEROL 152.17 mg/dL (0-200); GLUCOSE 98 mg/dL (75-110); POTASSIUM 4.1 mmol/L (3.6-5.0); TRIGLYCERIDES 173 mg/dL (<150)
[2019-07-27 07:05] LABS: DIRECT LDL 93 mg/dL (<100)
[2019-07-27 07:08] LABS: VLDL CHOLESTEROL 34.6 mg/dL (10-31)
[2019-07-27 07:10] LABS: FREE T3 3.78 pg/mL (2.77-5.27)
[2019-07-27 07:24] LABS: THYROID STIMULATING HORMONE 4.3 uIU/mL (0.47-4.68)
[2019-07-27] MEDS: DOCUSATE SODIUM 100 MG CAPSULE PO SCH (09:13)
[2019-07-27] MEDS ORDERED: (PENDING PHARMACY ID) (Telmisartan [Micardis 80 Mg Tablet] 80 MG) PO SCH (11:33)
[2019-07-27 11:51] VITALS: BP 142/65
[2019-07-27] MEDS ORDERED: METOPROLOL SUCCINATE 50 MG TAB.SR.24H PO SCH (12:00)
[2019-07-27] MEDS ORDERED: LOSARTAN POTASSIUM 50 MG TABLET PO SCH (12:00)
--- NOTE | 2019-07-27 16:45 | PDOC DISCHARGE SUMMARY ---
Impression - Admit/DC Date/PCP Admission Date/Primary Care Provider: 07/26/19 06:15 WALI DAVIDSON MD Discharge Date: 07/27/19 - Discharge Diagnosis (1) Acute renal injury Is this a current diagnosis for this admission?: Yes (2) CAD (coronary artery disease) Is this a current diagnosis for this admission?: Yes (3) Dehydration Is this a current diagnosis for this admission?: Yes (4) Dementia Is this a current diagnosis for this admission?: Yes (5) Fall Is this a current diagnosis for this admission?: Yes (6) GERD (gastroesophageal reflux disease) Is this a current diagnosis for this admission?: Yes (7) Hyperlipidemia Is this a current diagnosis for this admission?: Yes (8) Hypothyroidism Is this a current diagnosis for this admission?: Yes (9) Hypertension Is this a current diagnosis for this admission?: Yes (10) Paroxysmal atrial fibrillation Is this a current diagnosis for this admission?: Yes - Assessment Summary: Patient will be admitted to the medical floor where she will receive routine supportive and symptomatic cares. She will be aggressively hydrated utilizing lactated Ringer's at 100 cc 7 mL/h. Her CBCs, metabolic profiles and magnesium levels will be followed on a regular basis as appropriate. Neuro checks will be performed every 4 hours. She will use Ativan 1 mg IV every 4 hours as needed for anxiety or restlessness. She will use morphine sulfate 2 to 4 mg IV every 2 hours on an as-needed basis for pain using a sliding scale for dosing. She will be maintained on a cardiac diet. PT and OT will be consulted. disabilities services officer will be consulted. Serial lactic acid levels will be performed. Serial cardiac enzymes will be performed. Patient's usual home medications will be restarted, as appropriate, after her medication list has been verified and reconciled. - Additional Information Resuscitation Status: Full Code Discharge Diet: Cardiac Discharge Activity: Balance Activity w/Rest, Supervised Activity Referrals: WALI DAVIDSON MD [Primary Care Provider] - 08/13/19 11:00 am BRIGITTE GUTIERREZ MD [PEDIATRICS] - 08/01/19 2:45 pm Home Medications: Aspirin [Adult Aspirin] 81 mg PO DAILY 11/15/17 Atorvastatin Calcium [Lipitor 20 mg Tablet] 20 mg PO QHS 11/15/17 Bupropion HCl [Wellbutrin Xl] 150 mg PO DAILY 11/15/17 Donepezil HCl [Aricept] 10 mg PO QHS 11/15/17 Liothyronine Sodium [Cytomel] 10 mcg PO DAILY 11/15/17 Melatonin [Melatonin 3 mg Tablet] 3 mg PO QHS 11/15/17 Memantine HCl [Namenda 10 mg Tablet] 20 mg PO DAILY 11/15/17 Metoprolol Succinate [Toprol Xl] 50 mg PO BID 11/15/17 Pantoprazole Sodium [Protonix] 40 mg PO QHS 11/15/17 Pramipexole Di-HCl [Mirapex 0.5 mg Tablet] 0.75 mg PO QHS 11/15/17 Telmisartan [Micardis 80 mg Tablet] 80 mg PO DAILY 11/15/17 Trazodone HCl [Desyrel] 100 mg PO QHS 11/15/17 Duloxetine HCl [Cymbalta] 120 mg PO DAILY #60 capsule. 11/16/17 Celecoxib [Celebrex 200 mg Capsule] 200 mg PO Q12HP PRN 07/26/19 Diclofenac Epolamine 1 each TD Q12 07/26/19 Gabapentin [Neurontin 300 mg Capsule] 600 mg PO BID@1800,2200 07/26/19 Glycopyrrolate 1 mg PO DAILY 07/26/19 Levocetirizine Dihydrochloride [Allergy Relief] 5 mg PO DAILY 07/26/19 Lidocaine [Lidoderm 5% (700 mg) Transdermal Patch] 1 patch TP DAILY 07/26/19 Mirabegron [Myrbetriq] 25 mg PO DAILY 07/26/19 Montelukast Sodium [Singulair 10 mg Tablet] 10 mg PO QHS 07/26/19 History of Present Illiness History of Present Illness: RUKHSANA GANDHI is a 73 year old female who presented via EMS to the emergency room with a 1 day history of generalized weakness. Patient has dementia and is unable to contribute accurate and reliable information to her medical history however her reported that she developed gradually progressively worsening generalized weakness over the last 24 hours prior to his calling EMS. Her weakness was accompanied by unsteadiness on her feet/dizziness and was worsened with standing or walking and had resulted in falls. It was associated with an episode of diaphoresis, following her second fall of the day, just prior to calling EMS. Her denied other associated or accompanying signs and symptoms, prior similar episodes and he had not noted any additional aggravating or ameliorating factors for her weakness. In the emergency room she was found to have a lactic acid level of 2.6 and an acute kidney injury. CT scan of the head and neck revealed no evidence of fracture. She was subsequently admitted to the hospital for further evaluation and treatment of her generalized weakness. Hospital Course Hospital Course: She responded very well to IV fluids and her renal function returned to normal. She was ruled out for any sort of skull or cervical spine fracture, there was no evidence of bleeding. The patient did not have any sort of neurological def icits. She actually walked very well with physical therapy, and her wanted her to be able to continue with the outpatient therapy she is getting at home. she already has a walker at home. She had good home support. Her comorbid conditions were managed with her home medications that were not exacerbated during this hospitalization. Her labs and examination were reassuring and she was discharged in stable condition. Physical Exam Vital Signs: Temp Pulse Resp BP Pulse Ox 99.1 F 98 20 142/65 H 98 07/27/19 11:49 07/27/19 11:49 07/27/19 11:49 07/27/19 11:49 07/27/19 11:49 Intake & Output 07/26/19 07/27/19 07/28/19 06:59 06:59 06:59 Intake Total 4918 1323 Output Total 1400 Balance 3518 1323 Weight 92.3 kg General appearance: PRESENT: no acute distress, cooperative, disheveled, obese Head exam: PRESENT: atraumatic, normocephalic Respiratory exam: PRESENT: clear to auscultation manoj, symmetrical, unlabored. ABSENT: accessory muscle use, chest wall tenderness, crackles, prolonged expiratory phas, rhonchi, tachypnea, wheezes Cardiovascular exam: PRESENT: irregular rhythm, +S1, +S2 Pulses: PRESENT: normal carotid pulses Vascular exam: PRESENT: normal capillary refill GI/Abdominal exam: PRESENT: normal bowel sounds, soft. ABSENT: distended, guarding, rebound, tenderness Extremities exam: ABSENT: clubbing, pedal edema Musculoskeletal exam: PRESENT: normal inspection. ABSENT: deformity Neurological exam: PRESENT: alert, awake, oriented to person. ABSENT: oriented to situation Psychiatric exam: PRESENT: appropriate affect Skin exam: PRESENT: dry, warm Results Laboratory Results: WBC 6.1 10^3/uL (4.0-10.5) 07/27/19 06:02 RBC 3.54 10^6/uL (3.72-5.28) L 07/27/19 06:02 Hgb 11.6 g/dL (12.0-15.5) L 07/27/19 06:02 Hct 34.5 % (36.0-47.0) L 07/27/19 06:02 MCV 98 fl (80-97) H 07/27/19 06:02 MCH 32.9 pg (27.0-33.4) 07/27/19 06:02 MCHC 33.6 g/dL (32.0-36.0) 07/27/19 06:02 RDW 15.5 % (11.5-14.0) H 07/27/19 06:02 Plt Count 239 10^3/uL (150-450) 07/27/19 06:02 Lymph % (Auto) 15.3 % (13-45) 07/26/19 04:15 [place]ison % (Auto) 5.4 % (3-13) 07/26/19 04:15 Eos % (Auto) 1.6 % (0-6) 07/26/19 04:15 Baso % (Auto) 0.4 % (0-2) 07/26/19 04:15 Absolute Neuts (auto) 9.3 10^3/uL (1.7-8.2) H 07/26/19 04:15 Absolute Lymphs (auto) 1.9 10^3/uL (0.5-4.7) 07/26/19 04:15 Absolute Monos (auto) 0.7 10^3/uL (0.1-1.4) 07/26/19 04:15 Absolute Eos (auto) 0.2 10^3/uL (0.0-0.6) 07/26/19 04:15 Absolute Basos (auto) 0.1 10^3/uL (0.0-0.2) 07/26/19 04:15 Seg Neutrophils % 77.3 % (42-78) 07/26/19 04:15 Platelet Estimate Cancelled 07/26/19 03:10 PT 12.9 SEC (11.4-15.4) 07/26/19 03:10 INR 0.97 07/26/19 03:10 VBG pH 7.28 (7.30-7.42) L 07/26/19 04:15 VBG pCO2 55.0 mmHg (35-63) 07/26/19 04:15 VBG HCO3 25.4 mmol/L (20-32) 07/26/19 04:15 VBG Base Excess -2.1 mmol/L 07/26/19 04:15 Sodium 136.4 mmol/L (137-145) L 07/27/19 06:02 Potassium 4.1 mmol/L (3.6-5.0) 07/27/19 06:02 Chloride 105 mmol/L (98-107) 07/27/19 06:02 Carbon Dioxide 25 mmol/L (22-30) 07/27/19 06:02 Anion Gap 6 (5-19) 07/27/19 06:02 BUN 14 mg/dL (7-20) 07/27/19 06:02 Creatinine 0.92 mg/dL (0.52-1.25) 07/27/19 06:02 Est GFR ( Amer) > 60 (>60) 07/27/19 06:02 Est GFR (Non-Af Amer) Cancelled 07/26/19 03:10 Est GFR (MDRD) Non-Af > 60 (>60) 07/27/19 06:02 Glucose 98 mg/dL (75-110) 07/27/19 06:02 POC Glucose 94 mg/dL (70-110) 07/26/19 04:23 Lactic Acid 2.3 mmol/L (0.7-2.1) H 07/26/19 10:15 Calcium 8.9 mg/dL (8.4-10.2) 07/27/19 06:02 Magnesium 1.8 mg/dL (1.6-2.3) 07/27/19 06:02 Total Bilirubin 0.5 mg/dL (0.2-1.3) 07/26/19 04:15 Direct Bilirubin 0.0 mg/dL (0.0-0.4) 07/26/19 04:15 Neonat Total Bilirubin Not Reportable 07/26/19 04:15 Neonat Direct Bilirubin Not Reportable 07/26/19 04:15 Neonat Indirect Bili Not Reportable 07/26/19 04:15 AST 54 U/L (14-36) H 07/26/19 04:15 ALT 31 U/L (<35) 07/26/19 04:15 Alkaline Phosphatase 80 U/L (38-126) 07/26/19 04:15 Creatine Kinase 534 U/L (30-135) H 07/27/19 00:32 CK-MB (CK-2) 1.08 ng/mL (<4.55) 07/27/19 00:32 Troponin I < 0.012 ng/mL 07/27/19 00:32 Total Protein 7.6 g/dL (6.3-8.2) 07/26/19 04:15 Albumin 4.1 g/dL (3.5-5.0) 07/26/19 04:15 Triglycerides 173 mg/dL (<150) H 07/27/19 06:02 Cholesterol 152.17 mg/dL (0-200) 07/27/19 06:02 LDL Cholesterol Direct 93 mg/dL (<100) 07/27/19 06:02 VLDL Cholesterol 34.6 mg/dL (10-31) H 07/27/19 06:02 HDL Cholesterol 45 mg/dL (>40) 07/27/19 06:02 EGFR Cancelled 07/26/19 03:10 TSH 4.30 uIU/mL (0.47-4.68) 07/27/19 06:02 Free T3 pg/mL 3.78 pg/mL (2.77-5.27) 07/27/19 06:02 Urine Color YELLOW 07/26/19 04:27 Urine Appearance SLIGHTLY-CLOUDY 07/26/19 04:27 Urine pH 5.0 (5.0-9.0) 07/26/19 04:27 Ur Specific [place] 1.023 07/26/19 04:27 Urine Protein 100 mg/dL (NEGATIVE) H 07/26/19 04:27 Urine Glucose (UA) NEGATIVE mg/dL (NEGATIVE) 07/26/19 04:27 Urine Ketones NEGATIVE mg/dL (NEGATIVE) 07/26/19 04:27 Urine Blood NEGATIVE (NEGATIVE) 07/26/19 04:27 Urine Nitrite (Reflex) NEGATIVE (NEGATIVE) 07/26/19 04:27 Urine Bilirubin NEGATIVE (NEGATIVE) 07/26/19 04:27 Urine Urobilinogen NEGATIVE mg/dL (<2.0) 07/26/19 04:27 Leukocyte Esterase Rfl NEGATIVE (NEGATIVE) 07/26/19 04:27 Urine RBC (Auto) 1 /HPF 07/26/19 04:27 U Hyaline Cast (Auto) 1 /LPF 07/26/19 04:27 Urine WBC (Reflex) 1 /HPF 07/26/19 04:27 Squamous Epi Cells Auto <1 /HPF 07/26/19 04:27 Urine Mucus (Auto) OCC /LPF 07/26/19 04:27 Urine Ascorbic Acid 40 (NEGATIVE) H 07/26/19 04:27 Slides for Path Review Cancelled 07/26/19 03:10 07/26/19 07/26/19 07/26/19 05:53 12:37 17:26 CK-MB (CK-2) 1.17 1.46 Troponin I < 0.012 < 0.012 < 0.012 07/27/19 00:32 CK-MB (CK-2) 1.08 Troponin I < 0.012 Impressions: Chest X-Ray 07/26/19 03:31 IMPRESSION: No acute cardiopulmonary process copyright 2011 [employer]- All Rights Reserved Head CT 07/26/19 03:32 IMPRESSION: 1. No acute intracranial hemorrhage is seen. 2. Mild cerebral atrophy and periventricular white matter changes are seen. Cervical Spine CT 07/26/19 03:33 IMPRESSION: There are no findings to suggest an acute fracture or subluxation within the cervical spine. Multilevel degenerative changes are seen at the cervical spine. Plan Time Spent: Greater than 30 Minutes Stroke Is this a Stroke Patient?: No Acute Heart Failure - Is this a Heart Failure Patient?: No
== END 2019-07-27 14:15 | disposition home or self-care (01) ==
LOC: ER 02:34 → EH 05:50 → UNDOADMOB 05:50 → INTOOBSV 06:15 → EH 06:15 → OBSVTOIN 06:15 → 4N 07:26
PROVIDERS: ADMIT Emergency Medicine; ATTEND Emergency Medicine
DX: N17.9 Acute kidney failure, unspecified (principal); I25.10 Atherosclerotic heart disease of native coronary artery without angina pectoris; E86.0 Dehydration; G30.9 Alzheimer's disease, unspecified; F02.80 Dementia in other diseases classified elsewhere, unspecified severity, without behavioral disturbance, psychotic disturbance, mood disturbance, and anxiety; K21.9 Gastro-esophageal reflux disease without esophagitis; R26.81 Unsteadiness on feet; R29.6 Repeated falls; M54.2 Cervicalgia; R42 Dizziness and giddiness; R51 Headache; W19.XXXA Unspecified fall, initial encounter; E78.5 Hyperlipidemia, unspecified; I95.0 Idiopathic hypotension; E03.9 Hypothyroidism, unspecified; I10 Essential (primary) hypertension; R53.1 Weakness; I48.0 Paroxysmal atrial fibrillation; E66.9 Obesity, unspecified; M19.90 Unspecified osteoarthritis, unspecified site; E87.2 Acidosis; Z82.49 Family history of ischemic heart disease and other diseases of the circulatory system; Z96.82 Presence of neurostimulator; Z90.13 Acquired absence of bilateral breasts and nipples; Z87.828 Personal history of other (healed) physical injury and trauma; Z85.3 Personal history of malignant neoplasm of breast; Z86.718 Personal history of other venous thrombosis and embolism; Z79.899 Other long term (current) drug therapy; Z79.82 Long term (current) use of aspirin
CPT/HCPCS: 93005; 99285; 96360; 96361; 36415 ×2; 87040; 82553 ×2; 82962; 82550 ×2; 83605; 83735; 84443; 85025; 85027; 85610; 80048; 80053; 81001; 84484 ×2; 84481; 82803; 80061; 71046; 70450; 72125; 93010; 97116; 97163; 97535; 97165; G0378; J1644 ×2; J0360; J7030; J7120 ×2; J3490